=== PATIENT | female | born 1935 | race Caucasian/White ===

== ENCOUNTER 2016-07-18 18:14 | Emergency (ER) | payer MEDICARE ==
--- NOTE | 2016-07-18 19:56 | ED ---
Jose Martin Cole Matthew, scribed for James Bojorquez MD on 07/18/16 at 1944 . ED Suture/Wound Check - HPI Summary HPI Summary: An 80 y/o female presents to the ED c/o of excess bleeding from her surgical wounds s/p catheterization at 10:45 today. The patient was released at 15:00 today with minimal bleeding from her right wrist and right groin. However, when she returned home, she noticed her groin bandage was blood soaked. She contacted her surgeon who recommended she present to the ED. Per the daughter, the patient had to walk up a flight of stairs to get into her home and she has been coughing frequently. - History Of Current Complaint Chief Complaint: EDGeneral Stated Complaint: BLEEDING FROM GROIN-HAD CARDIAC CATH TODAY Time Seen by Provider: 07/18/16 19:24 Hx Obtained From: Patient Onset/Duration: Lasting Hours, Still Present Surgical Site: right wrist, right groin Severity: Mild Pain Intensity: 20 Procedure Type: Cardiac Catheterization Surgery Date: 07/18/16 - Allergies/Home Medications Allergies/Adverse Reactions: Allergies Allergy/AdvReac Type Severity Reaction Status Date / Time No Known Allergies Allergy Verified 07/04/14 14:59 PMH/Surg Hx/FS Hx/Imm Hx Endocrine/Hematology History: Reports: Hx Diabetes Denies: Hx Thyroid Disease Cardiovascular History: Reports: Hx Hypertension Respiratory History: Reports: Hx Asthma Denies: Hx Chronic Obstructive Pulmonary Disease (COPD) GI History: Denies: Hx Ulcer - Cancer History Cancer Type, Location and Year: Left breast - Surgical History Surgery Procedure, Year, and Place: b/l knee replacements, LEFT MASTECTOMY Infectious Disease History: Denies: Hx Hepatitis, Hx Human Immunodeficiency Virus (HIV), Traveled Outside the [place] in Last 30 Days - Family History Family History: FHx of COPD. FHx of Parkinsons - Social History Alcohol Use: Daily Substance Use Type: Reports: None Smoking Status (MU): Never Smoked Tobacco Review of Systems Constitutional: Negative Eyes: Negative ENT: Negative Cardiovascular: Negative Respiratory: Negative Gastrointestinal: Negative Genitourinary: Negative Musculoskeletal: Negative Skin: Other - excess bleeding from sugerical sights Neurological: Negative Psychological: Normal All Other Systems Reviewed And Are Negative: Yes Physical Exam Triage Information Reviewed: Yes Vital Signs On Initial Exam: Initial Vitals Temp Pulse Resp BP Pulse Ox 97.5 F 64 20 132/60 93 07/18/16 18:18 07/18/16 18:18 07/18/16 18:18 07/18/16 18:18 07/18/16 18:18 Vital Signs Reviewed: Yes Appearance: Positive: Well-Appearing, No Pain Distress Skin: Positive: Warm Head/Face: Positive: Normal Head/Face Inspection ENT: Positive: Hearing grossly normal Respiratory/Lung Sounds: Positive: Clear to Auscultation Abdomen Description: Positive: Other: - rt groin with pressure dressing with blood soaked gauze, no extravasation beyond bandage, banmdage in place since hospital d/c 6 hrs ago Musculoskeletal: Positive: Strength/ROM Intact Neurological: Positive: Sensory/Motor Intact Psychiatric: Positive: Affect/Mood Appropriate Diagnostics - Vital Signs Vital Signs Temp Pulse Resp BP Pulse Ox 07/18/16 18:18 97.5 F 64 20 132/60 93 - Laboratory Lab Statement: Any lab studies that have been ordered have been reviewed, and results considered in the medical decision making process. Course/Dx - Course Assessment/Plan: An 80 y/o female presents to the ED c/o of excess bleeding from her surgical wounds s/p catheterization at 10:45 today. The patient was released at 15:00 today with minimal bleeding from her right wrist and right groin. However, when she returned home, she noticed her groin bandage was blood soaked. She contacted her surgeon who recommended she present to the ED. Per the daughter, the patient had to walk up a flight of stairs to get into her home and she has been coughing frequently. The patient did well in the ED and her bandages were changed. She will be discharged home with follow-up from her surgeon. - Clinical Impression Provider Diagnoses: Bleeding from venipuncture site Discharge - Discharge Plan Condition: Good Disposition: HOME Patient Education Materials: Bandage Change (ED) Referrals: Altagracia VASQUEZ,Lou Alegre [Primary Care Provider] - 2 Days Additional Instructions: Please follow-up with your surgeon as well as your primary care physician. Do not drive for the next 24 hours. Please return to the ED if you continue to have excess bleeding. The documentation as recorded by the Jose Martin carrasco Matthew accurately reflects the service I personally performed and the decisions made by me, James Bojorquez MD.
[2016-07-18 20:35] VITALS: BP 150/69
== END 2016-07-18 21:01 | disposition home or self-care (01) ==
LOC: ED 18:14
DX: L76.22 Postprocedural hemorrhage of skin and subcutaneous tissue following other procedure (principal); Y83.8 Other surgical procedures as the cause of abnormal reaction of the patient, or of later complication, without mention of misadventure at the time of the procedure; E11.9 Type 2 diabetes mellitus without complications; I10 Essential (primary) hypertension
CPT/HCPCS: 99282

== ENCOUNTER 2017-10-15 09:49 | Emergency (ER) | payer MEDICARE ==
[2017-10-15 09:57] VITALS: BP 121/70
--- NOTE | 2017-10-15 11:19 | UC ---
Lower Extremity/Ankle HPI - HPI Summary HPI Summary: Accompanied by daughter states that for the past 2 days she has been feeling swelling of right lower leg with mild itching and tenderness. Swelling has worsened as days go by. She has history of Afib on Eliquis. Denies changes in medications and she is active and mobile. - History of Current Complaint Chief Complaint: UCLowerExtremity Stated Complaint: R LEG COMPLAINT Time Seen by Provider: 10/15/17 10:56 Hx Obtained From: Patient ?: No Onset/Duration: Sudden Onset, Lasting Days Severity Initially: Mild Severity Currently: Moderate Pain Intensity: 6 Aggravating Factor(s): Nothing Alleviating Factor(s): Elevation Able to Bear Weight: Yes - Risk Factors Gout Risk Factors: Age Over 40 DVT Risk Factors: Negative Septic Arthritis Risk Factor: Negative - Allergies/Home Medications Allergies/Adverse Reactions: Allergies Allergy/AdvReac Type Severity Reaction Status Date / Time No Known Allergies Allergy Verified 10/15/17 09:57 Home Medications: Home Medications Apixaban* [Eliquis*] 5 mg PO DAILY 10/15/17 [History Confirmed 10/15/17] Furosemide TAB* [Lasix TAB*] 80 mg PO DAILY 10/15/17 [History Confirmed 10/15/17 ] Montelukast Sodium TAB* [Singulair 10 MG TAB*] 10 mg PO DAILY 10/15/17 [History Confirmed 10/15/17] Omeprazole CAP* [Prilosec CAP* 20 MG] 20 mg PO DAILY 10/15/17 [History Confirmed 10/15/17] Potassium Chlor TAB* [Klor Con ER TAB 10 MEQ*] 10 meq PO DAILY 10/15/17 [ History Confirmed 10/15/17] Sildenafil (PULMONARY)(NF) [Revatio (NF)] 20 mg PO DAILY 10/15/17 [History Confirmed 10/15/17] Sitagliptin Phosphate [Januvia] 100 mg PO WEEKLY 10/15/17 [History Confirmed 07/28] metFORMIN* [Glucophage 1000 MG TAB *] 500 mg PO BID 10/15/17 [History Confirmed 10/15/17] metOLazone [Metolazone] 2.5 mg PO DAILY 10/15/17 [History Confirmed 10/15/17] PMH/Surg Hx/FS Hx/Imm Hx Previously Healthy: Yes Endocrine History: Diabetes Cardiovascular History: Hypertension, Congestive Heart Failure, Atrial Fibrillation GI/ History: Gastroesophageal Reflux - Surgical History Surgical History: Yes Surgery Procedure, Year, and Place: b/l knee replacements, LEFT MASTECTOMY - Family History Family History: FHx of COPD. FHx of Parkinsons - Social History Alcohol Use: Daily Substance Use Type: None Smoking Status (MU): Never Smoked Tobacco - Immunization History Most Recent Influenza Vaccination: [id number] Review of Systems Constitutional: Negative All Other Systems Reviewed And Are Negative: Yes Physical Exam Triage Information Reviewed: Yes Appearance: Well-Appearing, No Pain Distress, Well-Nourished Vital Signs: Initial Vital Signs Temp 98 F 10/15/17 09:51 Pulse 84 10/15/17 09:51 Resp 16 10/15/17 09:51 BP 121/70 10/15/17 09:51 Pulse Ox 99 10/15/17 09:51 Vital Signs Reviewed: Yes Eyes: Positive: Conjunctiva Clear Neck: Positive: Supple Respiratory: Positive: Chest non-tender, Lungs clear, Normal breath sounds Cardiovascular: Positive: Pulses Normal, Brisk Capillary Refill - irregular heartbeat, Bradycardia, Murmur:Sys:Grade _?_/ - 2/ Abdomen Description: Positive: Nontender Bowel Sounds: Positive: Present Musculoskeletal: Positive: Strength Intact, ROM Intact, Edema @ - right leg distal third Skin: Positive: Other - blanching erythema on distal third of right leg Lower Extremity Course/Dx - Course Course Of Treatment: cellulitis right leg, start antibiotics as prescribed, elevate leg, ice. F/u with PCP within a week - Differential Dx/Diagnosis Provider Diagnoses: Cellulitis right leg Discharge - Sign-Out/Discharge Documenting (check all that apply): Patient Departure, Post-Discharge Follow Up - Discharge Plan Condition: Good Disposition: HOME Prescriptions: DOXYcycline CAP(*) [DOXYcycline 100MG CAP(*)] 100 mg PO BID 7 Days #14 cap Patient Education Materials: Cellulitis (DC), Doxycycline (By mouth) Referrals: Altagracia VASQUEZ,Lou Alegre [Primary Care Provider] - - Billing Disposition and Condition Condition: GOOD Disposition: Home
== END 2017-10-15 11:37 | disposition home or self-care (01) ==
LOC: UCEAST 09:49
DX: L03.115 Cellulitis of right lower limb (principal); E11.9 Type 2 diabetes mellitus without complications; Z79.84 Long term (current) use of oral hypoglycemic drugs; I10 Essential (primary) hypertension; I48.91 Unspecified atrial fibrillation; Z79.01 Long term (current) use of anticoagulants; K21.9 Gastro-esophageal reflux disease without esophagitis; Z96.653 Presence of artificial knee joint, bilateral
CPT/HCPCS: 99212; G0463

== ENCOUNTER 2017-11-11 11:27 | Emergency (ER) | payer MEDICARE ==
--- NOTE | 2017-11-13 07:11 | UC ---
Discharge - Sign-Out/Discharge Documenting (check all that apply): Post-Discharge Follow Up All imaging exams completed and their final reports reviewed: No Studies - Discharge Plan Condition: Stable Disposition: LEFT WITHOUT BEING SEEN Referrals: Altagracia VASQUEZ,Lou Alegre [Primary Care Provider] - - Billing Disposition and Condition Condition: STABLE Disposition: Left Without Being Seen
== END 2017-11-11 11:51 | disposition left against medical advice (07) ==
LOC: UCEAST 11:27
DX: Z53.21 Procedure and treatment not carried out due to patient leaving prior to being seen by health care provider (principal)

== ENCOUNTER 2017-11-11 12:10 | Emergency (ER) | payer MEDICARE ==
--- NOTE | 2017-11-11 14:53 | RAD ---
INDICATION: LEFT lower extremity edema. COMPARISON: No relevant prior exams available on the [facility] [place] PACS for comparison. TECHNIQUE: Phan scale, color Doppler, and spectral analysis of the deep veins of the LEFT lower extremity. Vessel compression, phasicity, and augmentation assessed. REPORT: The LEFT common femoral, great saphenous, profunda femoral, femoral, popliteal, peroneal, and posterior tibial veins are patent. Patency of the RIGHT common femoral vein documented. IMPRESSION: No evidence for LEFT lower extremity deep venous thrombosis.
[2017-11-11 15:20] VITALS: BP 121/59
--- NOTE | 2017-11-12 07:34 | ED ---
Skin Complaint - HPI Summary HPI Summary: Patient is an 81-year-old female presenting to the ED from urgent care with request for ultrasound to rule out DVT. She endorses a small area approximately 4 cm x 3 cm to the upper medial portion of the lower leg which appears to be a hematoma. She injured the area several days ago getting into a vehicle. After which the hematoma grew and she developed some swelling and ecchymosis into the foot. Denies any pain to the calf. She has never had a DVT or PE in the past. Endorses mild pain to the foot, but no pain to the leg. Worse with ambulation, better with rest. The pain improves with elevation and ice. - History of Current Complaint Chief Complaint: EDRashSkinAbscess Time Seen by Provider: 11/11/17 12:44 Stated Complaint: LT LEG SWELLING Hx Obtained From: Patient Onset/Duration: Started Hours Ago Skin Exposure Onset/Duration: Days Ago Timing: Constant Onset Severity: Mild Current Severity: None Pain Intensity: 0 Pain Scale Used: 0-10 Numeric Aggravating Symptom(s): Nothing Alleviating Symptom(s): Nothing Associated Signs & Symptoms: Negative Related History: Trauma - Allergy/Home Medications Allergies/Adverse Reactions: Allergies Allergy/AdvReac Type Severity Reaction Status Date / Time No Known Allergies Allergy Verified 11/11/17 12:54 PMH/Surg Hx/FS Hx/Imm Hx Previously Healthy: Yes Endocrine/Hematology History: Reports: Hx Diabetes - II Denies: Hx Thyroid Disease Cardiovascular History: Reports: Hx Hypertension - on meds Respiratory History: Reports: Hx Asthma Denies: Hx Chronic Obstructive Pulmonary Disease (COPD) GI History: Denies: Hx Ulcer - Cancer History Cancer Type, Location and Year: Left breast - Surgical History Surgery Procedure, Year, and Place: b/l knee replacements, LEFT MASTECTOMY - Immunization History Hx Pertussis Vaccination: No Immunizations Up to Date: Yes Infectious Disease History: No Infectious Disease History: Denies: Hx Hepatitis, Hx Human Immunodeficiency Virus (HIV), Traveled Outside the [place] in Last 30 Days - Family History Family History: FHx of COPD. FHx of Parkinsons - Social History Occupation: Unemployed Lives: With Family Alcohol Use: Daily Hx Substance Use: No Substance Use Type: Reports: None Hx Tobacco Use: No Smoking Status (MU): Never Smoked Tobacco Review of Systems Constitutional: Negative Negative: Fever, Chills, Fatigue, Skin Diaphoresis Negative: Palpitations, Chest Pain Negative: Shortness Of Breath, Cough Genitourinary: Negative Positive: no symptoms reported, see HPI Negative: Arthralgia, Myalgia Skin: Negative Positive: Other - left medial lower let small hematoma Neurological: Negative All Other Systems Reviewed And Are Negative: Yes Physical Exam Triage Information Reviewed: Yes Vital Signs On Initial Exam: Initial Vitals Temp Pulse Resp BP Pulse Ox 97.2 F 47 16 131/63 96 11/11/17 12:17 11/11/17 12:17 11/11/17 12:17 11/11/17 12:17 11/11/17 12:17 Vital Signs Reviewed: Yes Appearance: Positive: Well-Appearing, Well-Nourished Skin: Positive: Warm, Skin Color Reflects Adequate Perfusion Head/Face: Positive: Normal Head/Face Inspection Eyes: Positive: EOMI, [place], Conjunctiva Clear Neck: Positive: Supple, No Lymphadenopathy Respiratory/Lung Sounds: Positive: Clear to Auscultation, Breath Sounds Present Cardiovascular: Positive: RRR, Pulses are Symmetrical in both Upper and Lower Extremities Musculoskeletal: Positive: Strength/ROM Intact, Other - left foot swelling - no leg swelling. Negative: Nasir Sign Left, Nasir Sign Right, Edema Left, Edema Right Neurological: Positive: Speech Normal Psychiatric: Positive: Normal, Affect/Mood Appropriate AVPU Assessment: Alert Diagnostics - Vital Signs Vital Signs Temp Pulse Resp BP Pulse Ox 11/11/17 15:18 98.4 F 70 18 121/59 96 11/11/17 12:17 97.2 F 47 16 131/63 96 - Laboratory Lab Statement: Any lab studies that have been ordered have been reviewed, and results considered in the medical decision making process. Course/Dx - Course Course Of Treatment: During the course of treatment, the patient is evaluated for left lower leg hematoma with some ipsilateral swelling into the left foot. She is evaluated for DVT. Ultrasound is negative for DVT. This appears to be a hematoma to the left leg which is causing swelling and ecchymosis to the foot. Improves greatly with elevation and ice. - Differential Diagnoses - Skin Complaint Differential Diagnoses: Other - DVT, contusion, swelling - Diagnoses Provider Diagnoses: Hematoma Discharge - Sign-Out/Discharge Documenting (check all that apply): Patient Departure - Discharge Plan Condition: Stable Disposition: HOME Referrals: Altagracia VASQUEZ,Lou Alegre [Primary Care Provider] - Additional Instructions: Elevate Ice Return to the ED or follow up with PCP if you develop redness and swelling up the leg No blood clot - Billing Disposition and Condition Condition: STABLE Disposition: Home
== END 2017-11-11 15:18 | disposition home or self-care (01) ==
LOC: ED 12:10
DX: S80.12XA Contusion of left lower leg, initial encounter (principal); W22.8XXA Striking against or struck by other objects, initial encounter; Y93.89 Activity, other specified; Y92.9 Unspecified place or not applicable; I10 Essential (primary) hypertension; Z96.653 Presence of artificial knee joint, bilateral
CPT/HCPCS: 99282

== ENCOUNTER 2018-07-11 11:53 | Inpatient (IN) | payer MEDICARE ==
--- OUTSIDE RECORDS SUMMARY | 2018-07-11 12:22 | XMS REPORT | Continuity of Care Document ---
:1935 External Reference #:[id number] Author Name Ulysses Khan MD Address [address] [place] [address] Care Team Providers Name Role Phone Lou Frias MD Care Team Information Preschool Director Unavailable Lou Frias MD Primary Care Physician Unavailable Payers Date Identification Numbers Payment Provider Subscriber Effective: Policy Number: [id number] [employer] Maday Madrid 2018 PayID: [id number] [address] [place] [address] Expires: 2018 Policy Number: Todays Opts [facility] Maday Madrid [id number] PayID: [id number] [address] [address] [place] [address] Advance Directives Description No Information Available Problems Active Problems Provider Date Pulmonary arterial hypertension Le Chao PA Onset: 02/07/2018 Hypoxemia Le Chao PA Onset: 02/07/2018 Acute bronchitis Le Chao PA Onset: 02/07/2018 Common cold Le Chao PA Onset: 05/16/2018 Hypo-osmolality and or hyponatremia Le Chao PA Onset: 06/12/2018 Malaise and fatigue Le Chao PA Onset: 06/12/2018 Family History Date Family Member(s) Observation Comments Father Emphysema Mother Unknown Social History Type Date Description Comments Sex Unknown Marital Status Occupation Retired Tobacco Use Start: Unknown Never Smoked Cigarettes Smoking Status Reviewed: 06/12/18 Never Smoked Cigarettes ETOH Use Currently consumes alcohol socially Tobacco Use Start: Unknown Patient has never smoked Recreational Drug Use Denies Drug Use Exercise Type/Frequency Golf Allergies, Adverse Reactions, Alerts Description No Known Drug Allergies Medications Active Medications SIG Qnty Indications Ordering Date Provider Montelukast Sodium Take One Tablet 90tabs J30.89 Ulysses Khan MD 2016 10mg By Mouth Every Tablets Day Torsemide 1 tab by mouth 45tabs I27.0 Ulysses Khan MD 100mg Tablets in in the morning and 1/2 tablet in the at night Spironolactone 1 by mouth every Unknown 50mg Tablets day Metoprolol Tartrate 1 by mouth twice Unknown 25mg a day Tablets Benzonatate take 1 capsule Unknown 100mg Capsules by mouth every 8 hours for coughing as needed Sildenafil Citrate take one tablet 90tabs Ulysses Khan MD 20mg by mouth three Tablets times a day Loratadine Take One Tablet 30tabs Ulysses Khan MD 10mg Tablets By Mouth Every Day Iron (Ferrous 1 by mouth every Unknown Gluconate) day 256(28Fe) mg Tablets Multi For Her 50+ 1 po qd Unknown Tablets Omeprazole 1 by mouth every Unknown 40mg Capsules DR day Potassium Chloride Vanessa 2 by mouth every 60tabs Ulysses Khan MD ER day 10Meq Tablets ER Metolazone by mouth 20 min 30tabs Unknown 2.5mg Tablets before lasix two times a week on mon, Oxygen 3L/min via nasal I27.0 Ulysses Khan MD cannula at hs and with activity to maintain oximetry greater than 88%. Please test for use with Portable o2 Concentrator. R09.02 Simvastatin 20mg 1 by mouth every day Unknown Tablets History Medications Torsemide 2 by mouth every 90tabs I27.0 Ulysses Khan, 05/17/2018 - 20mg Tablets morning and 1 in 06/12/2018 the afternoon, check bloodwork in one week Levaquin 1 by mouth daily 7tabs J20.9 Shaina Khantin, 02/07/2018 - 750mg Tablets for 5 days MD Unknown Claritin Take One Tablet 30tabs Shaina Khantin, 05/07/2017 - 10mg Tablet By Mouth Every MD Unknown Evening Revatio Take One Tablet 90tabs I27.0 Shaina Khantin, 05/01/2017 - 20mg Tablets By Mouth Three MD Unknown Times A Day Ciprofloxacin HCL Take 1 tablet 14tabs K74.60 Shaina Khantin, 04/28/2017 - 500mg Tablets twice a day or 7 MD Unknown days. Adcirca 1 by mouth every 30tabs I27.0 Bill, Ulysses, 04/12/2017 - 20mg Tablets day MD 05/01/2017 Claritin Take One Tablet 30tabs hSaina Khantin, 02/09/2017 - 10mg Tablet By Mouth Every MD Unknown Evening Adcirca 1 by mouth every 30tabs I27.0 Bill, Ulysses, 01/24/2017 - 20mg Tablets day MD Unknown Claritin take one tablet 30caps J30.89 Shaina Khantin, 08/11/2016 - 10mg Capsules by mouth every MD Unknown evening Spiriva Respimat take 2 puffs 4gm Shaina Khantin, - 2.5mcg/Act once daily. 06/12/2018 Aerosol Eliquis 1 tab by mouth Unknown - 5mg Tablets twice a day Unknown Vitamin D-3 1 by mouth every Unknown - 1000Unit Capsules day Unknown Furosemide 1 by mouth every Unknown - 80mg Tablets day 05/17/2018 Letairis 1 po qd Unknown - 5mg Tablets Unknown Qvar inhale one puff Unknown - 80mcg/Act Aerosol by mouth twice a 08/17/2016 day Bisoprolol Fumarate 1 by mouth every Unknown - 5mg Tablets day Unknown Levocetirizine 1 by mouth every Unknown - Dihydrochloride day 11/10/2016 5mg Tablets Januvia 1 by mouth every Unknown - 100mg Tablets day Unknown Hydrochlorothiazide 1 by mouth every Unknown - 25mg Tablets day Unknown Digoxin 1 by mouth every Unknown - 125mcg Tablets day Unknown Losartan Potassium 1 by mouth every Unknown - 50mg Tablets day Unknown Metformin HCL ER 1 by mouth twice Unknown - 500mg Tablets ER daily Unknown 24HR Pradaxa take one capsule Unknown - 150mg Capsules by mouth twice a Unknown day Immunizations Description No Information Available Vital Signs Date Vital Result Comment 06/12/2018 2:28pm BP Systolic Sitting Left Arm 98 mmHg BP Diastolic Sitting Left Arm 62 mmHg Heart Rate 77 /min Respiratory Rate 18 /min Height 64 inches 5'4" Weight 130.00 lb BMI (Body Mass Index) 22.3 kg/m2 BSA (Body Surface Area) 1.63 m2 [place] body weight in kilograms 54 kg O2 % BldC Oximetry 98 % 05/16/2018 2:22pm BP Systolic Sitting Left Arm 122 mmHg BP Diastolic Sitting Left Arm 60 mmHg Heart Rate 90 /min Respiratory Rate 18 /min Height 64 inches 5'4" Weight 162.00 lb BMI (Body Mass Index) 27.8 kg/m2 BSA (Body Surface Area) 1.79 m2 [place] body weight in kilograms 54 kg O2 % BldC Oximetry 88 % 03/21/2018 11:07am BP Systolic Sitting Left Arm 138 mmHg BP Diastolic Sitting Left Arm 62 mmHg Heart Rate 84 /min Respiratory Rate 18 /min Height 64 inches 5'4" Weight 159.00 lb BMI (Body Mass Index) 27.3 kg/m2 BSA (Body Surface Area) 1.77 m2 [place] body weight in kilograms 54 kg O2 % BldC Oximetry 83 % Ora 02/07/2018 9:54am BP Systolic Sitting Left Arm 120 mmHg BP Diastolic Sitting Left Arm 50 mmHg Body Temperature 98.4 F Heart Rate 84 /min Respiratory Rate 20 /min Height 64 inches 5'4" Weight 148.00 lb BMI (Body Mass Index) 25.4 kg/m2 BSA (Body Surface Area) 1.72 m2 [place] body weight in kilograms 54 kg O2 % BldC Oximetry 90 % 12/28/2017 1:35pm BP Systolic Sitting Right Arm 116 mmHg BP Diastolic Sitting Right Arm 62 mmHg Heart Rate 74 /min Respiratory Rate 18 /min Height 64 inches 5'4" Weight 150.00 lb BMI (Body Mass Index) 25.7 kg/m2 BSA (Body Surface Area) 1.73 m2 [place] body weight in kilograms 54 kg O2 % BldC Oximetry 97 % room air 08/24/2017 1:35pm BP Systolic Sitting Left Arm 118 mmHg BP Diastolic Sitting Left Arm 60 mmHg Heart Rate 81 /min Respiratory Rate 18 /min Weight 150.00 lb O2 % BldC Oximetry 92 % Ora 06/26/2017 11:52am BP Systolic Sitting Left Arm 124 mmHg BP Diastolic Sitting Left Arm 64 mmHg Heart Rate 86 /min Respiratory Rate 16 /min Height 64 inches 5'4" Weight 152.00 lb BMI (Body Mass Index) 26.1 kg/m2 BSA (Body Surface Area) 1.74 m2 [place] body weight in kilograms 54 kg O2 % BldC Oximetry 94 % Ora 04/28/2017 12:54pm BP Systolic Sitting Left Arm 122 mmHg BP Diastolic Sitting Left Arm 64 mmHg Heart Rate 84 /min Respiratory Rate 16 /min Height 64 inches 5'4" Weight 136.00 lb BMI (Body Mass Index) 23.3 kg/m2 BSA (Body Surface Area) 1.66 m2 [place] body weight in kilograms 54 kg O2 % BldC Oximetry 94 % 04/12/2017 2:08pm BP Systolic Sitting Right Arm 112 mmHg BP Diastolic Sitting Right Arm 60 mmHg Heart Rate 44 /min Respiratory Rate 20 /min Height 64 inches 5'4" Weight 161.00 lb BMI (Body Mass Index) 27.6 kg/m2 BSA (Body Surface Area) 1.78 m2 [place] body weight in kilograms 54 kg O2 % BldC Oximetry 97 % Room air 01/24/2017 3:32pm BP Systolic Sitting Left Arm 130 mmHg BP Diastolic Sitting Left Arm 77 mmHg Heart Rate 60 /min Respiratory Rate 16 /min Height 64 inches 5'4" Weight 156.00 lb BMI (Body Mass Index) 26.8 kg/m2 BSA (Body Surface Area) 1.76 m2 [place] body weight in kilograms 54 kg O2 % BldC Oximetry 94 % 12/13/2016 3:59pm BP Systolic Sitting Left Arm 118 mmHg BP Diastolic Sitting Left Arm 62 mmHg Heart Rate 53 /min Respiratory Rate 16 /min Height 64 inches 5'4" Weight 161.00 lb BMI (Body Mass Index) 27.6 kg/m2 BSA (Body Surface Area) 1.78 m2 [place] body weight in kilograms 54 kg O2 % BldC Oximetry 95 % Ora 11/10/2016 2:41pm BP Systolic Sitting Left Arm 102 mmHg BP Diastolic Sitting Left Arm 64 mmHg Heart Rate 50 /min Respiratory Rate 16 /min Height 64 inches 5'4" Weight 162.00 lb BMI (Body Mass Index) 27.8 kg/m2 BSA (Body Surface Area) 1.79 m2 [place] body weight in kilograms 54 kg O2 % BldC Oximetry 89 % Ora 08/11/2016 3:40pm BP Systolic Sitting Right Arm 114 mmHg BP Diastolic Sitting Right Arm 54 mmHg Heart Rate 55 /min Respiratory Rate 16 /min Height 64 inches 5'4" Weight 161.00 lb BMI (Body Mass Index) 27.6 kg/m2 BSA (Body Surface Area) 1.78 m2 [place] body weight in kilograms 54 kg O2 % BldC Oximetry 91 % Room Air 06/22/2016 3:20pm BP Systolic Sitting Left Arm 112 mmHg BP Diastolic Sitting Left Arm 76 mmHg Heart Rate 68 /min Respiratory Rate 18 /min Height 64 inches 5'4" Weight 166.00 lb BMI (Body Mass Index) 28.5 kg/m2 BSA (Body Surface Area) 1.81 m2 [place] body weight in kilograms 54 kg O2 % BldC Oximetry 88 % Results Test Date Facility Test Result H/L Range Note Comprehensive 06/15/2018 [facility] Glucose 292 mg/dL High 74-106 1 Metabolic Panel [address] [place], [place] [id number] [phone] BUN 112 mg/dL High 7-18 Creatinine 2.6 mg/dL High 0.6-1.3 Glom Filtration Rate, Estimate 19 mL/min >60 If 23 mL/min >60 2 BUN/Creat 43.0 ratio Sodium 125 mmol/L Low 136-145 Potassium 4.1 mmol/L N 3.5-5.1 Chloride 87 mmol/L Low 98-107 Carbon Dioxide 28 mmol/L N 21-32 Anion Gap 10 mEq/L N 8-16 Calcium 9.4 mg/dL N 8.5-10.1 Total Protein 7.2 g/dL N 6.4-8.2 Albumin 4.0 g/dL N 3.4-5.0 Globulin 3.2 g/dL N 1.9-4.3 Alb/Glob 1.3 ratio Bilirubin,Total 1.0 mg/dL N 0.2-1.0 Sgot/Ast 38 U/L High 15-37 SGPT/Alt 42 U/L N 12-78 Alkaline Phosphatase 141 U/L High 45-117 CBC 06/15/2018 [facility] White Blood Count 7.9 K/uL N 3.1-10.7 [address] [place] [address] [phone] Red Blood Count 4.31 M/uL N 3.90-5.40 Hemoglobin 12.1 gm/dL N 11.6-15.8 Hematocrit 36.9 % N 36.0-46.1 Mean Cell Volume 85.6 fl N 80.9-99.0 Mean Corpuscular HGB 28.1 pg N 25.9-32.7 Mean Corpuscular HGB Conc 32.8 g/dL N 30.8-34.3 Platelet Count 363 K/uL High 155-360 Red Cell Distri Width SD 55.1 fl High 36-47 Red Cell Distri Width %CV 18.0 % High 11.7-14.4 Mean Platelet Volume 10.6 fL N 8.9-12.4 NRBC % 0.0 /100WBC < 10/ 100 WBC Serum or plasma 05/26/2018 N2N/CCD Import Serum or plasma 9.1 8.5-10.1 calcium measurement calcium (mass/volume) measurement (mass/volume) Serum or plasma 05/26/2018 N2N/CCD Import Serum or plasma 5 Low 8-16 anion gap anion gap Co2 SerPl-sCnc 05/26/2018 N2N/CCD Import Co2 SerPl-sCnc 26 21-32 Serum or plasma 05/26/2018 N2N/CCD Import Serum or plasma 103 98-107 chloride chloride measurement measurement Serum or plasma 05/26/2018 N2N/CCD Import Serum or plasma 4.7 3.5-5.1 potassium potassium measurement measurement Sodium SerPl-sCnc 05/26/2018 N2N/CCD Import Sodium SerPl-sCnc 134 Low 136 -145 Serum or plasma 05/26/2018 N2N/CCD Import Serum or plasma 31.6 urea urea nitrogen/creatinine nitrogen/creatinin mass rati e mass ratio GFR/Bsa pred.black 05/26/2018 N2N/CCD Import GFR/Bsa pred.black 55 >60 SerPl MDRD-ArVRat SerPl MDRD-ArVRat Estimated 05/26/2018 N2N/CCD Import Estimated 46 >60 glomerular glomerular filtration rate filtration rate (GFR) non-Afr (GFR) non- Serum or plasma 05/26/2018 N2N/CCD Import Serum or plasma 1.2 0.6-1.3 creatinine creatinine measurement measurement (mass/volum (mass/volume) Serum or plasma 05/26/2018 N2N/CCD Import Serum or plasma 38 High 7-18 urea nitrogen urea nitrogen measurement measurement (mass/vo (mass/volume) Serum or plasma 05/26/2018 N2N/CCD Import Serum or plasma 192 High 74- 106 glucose measurement glucose (mass/volume) measurement (mass/volume) Capillary blood 05/26/2018 N2N/CCD Import Capillary blood 253 High 70- 110 glucose measurement glucose by glucometer measurement by glucometer (mass/volume) CBC 05/26/2018 [facility] White Blood Count 12.7 High 3.1-10.[address] [place] [address] [phone] Red Blood Count 3.13 M/uL Low 3.90-5.40 Hemoglobin 8.6 gm/dL Low 11.6-15.8 Hematocrit 27.8 % Low 36.0-46.1 Mean Cell Volume 88.8 fl N 80.9-99.0 Mean Corpuscular HGB 27.5 pg N 25.9-32.7 Mean Corpuscular HGB Conc 30.9 g/dL N 30.8-34.3 Platelet Count 260 K/uL N 155-360 Red Cell Distri Width %CV 15.9 % High 11.7-14.4 Mean Platelet Volume 10.2 fL N 8.9-12.4 Basic Metabolic Panel 05/26/2018 [facility] Glucose 192 mg/dL High 74-106 [address] [place], [place] [id number] [phone] BUN 38 mg/dL High 7-18 Creatinine 1.2 mg/dL N 0.6-1.3 Glom Filtration Rate, Estimate 46 mL/min >60 If 55 mL/min >60 4 BUN/Creat 31.6 ratio Sodium 134 mmol/L Low 136-145 Potassium 4.7 mmol/L N 3.5-5.1 Chloride 103 mmol/L N 98-107 Carbon Dioxide 26 mmol/L N 21-32 Anion Gap 5 mEq/L Low 8-16 Calcium 9.1 mg/dL N 8.5-10.1 Automated blood 05/26/2018 N2N/CCD Import Automated blood 12.7 High 3.1- 10.7 leukocyte count leukocyte count (number/volume) (number/volume) Blood erythrocytes 05/26/2018 N2N/CCD Import Blood erythrocytes 3.13 Low 3.90-5.40 automated count automated count (number/volume) (number/volume) Blood hemoglobin 05/26/2018 N2N/CCD Import Blood hemoglobin 8.6 Low 11.6- 15.8 measurement measurement (mass/volume) (mass/volume) Hct VFr Bld Auto 05/26/2018 N2N/CCD Import Hct VFr Bld Auto 27.8 Low 36.0 -46.1 Automated 05/26/2018 N2N/CCD Import Automated 88.8 80.9-99.0 erythrocyte mean erythrocyte mean corpuscular volume corpuscular volume (MCV (MCV) measurement Automated 05/26/2018 N2N/CCD Import Automated 27.5 25.9-32.7 erythrocyte mean erythrocyte mean corpuscular corpuscular hemoglobin hemoglobin (mass per erythrocyte) Automated 05/26/2018 N2N/CCD Import Automated 30.9 30.8-34.3 erythrocyte mean erythrocyte mean corpuscular corpuscular hemoglobin hemoglobin concentration measurement (mass/volume) Automated blood 05/26/2018 N2N/CCD Import Automated blood 260 155-360 platelet count platelet count Automated 05/26/2018 N2N/CCD Import Automated 15.9 High 11.7-14.4 erythrocyte erythrocyte distribution width distribution width ratio ratio Automated blood 05/26/2018 N2N/CCD Import Automated blood 10.2 8.9-12.4 platelet mean platelet mean volume measurement volume measurement Automated basophil 05/25/2018 N2N/CCD Import Automated basophil 0.1 0.0- 1.1 % % Absolute neutrophil 05/25/2018 N2N/CCD Import Absolute neutrophil 11.97 High 1.8-7.0 count count Automated blood 05/25/2018 N2N/CCD Import Automated blood 0.83 Low 1.0- 4.0 lymphocyte count lymphocyte count (number/volume) (number/volume) Blood monocytes 05/25/2018 N2N/CCD Import Blood monocytes 0.65 0.3-0.9 automated count automated count (number/volume) (number/volume) Automated blood 05/25/2018 N2N/CCD Import Automated blood 0.00 0.0-0.5 eosinophil count eosinophil count Automated blood 05/25/2018 N2N/CCD Import Automated blood 0.01 0.0-0.1 basophil count basophil count (number/volume) (number/volume) Unloinc 05/25/2018 N2N/CCD Import Unloinc See Note 5 Blood polychromasia 05/25/2018 N2N/CCD Import Blood polychromasia 0-1+ detection by light detection by light microscopy microscopy Whole blood 05/25/2018 N2N/CCD Import Whole blood 1+ hypochromia hypochromia detection by light detection by light microsc microscopy Blood 05/25/2018 N2N/CCD Import Blood 0-1+ poikilocytosis poikilocytosis detection by light detection by light microscopy microscopy Blood anisocytosis 05/25/2018 N2N/CCD Import Blood anisocytosis 1+ detection by light detection by light microscopy microscopy Blood basophilic 05/25/2018 N2N/CCD Import Blood basophilic 0-1+ stippling detection stippling detection by light micr by light microscopy Blood elliptocytes 05/25/2018 N2N/CCD Import Blood elliptocytes 0-1+ detection by light detection by light microscopy microscopy Hemoglobin/Hematocr 05/25/2018 [facility] Hemoglobin 8.5 Low 11.6-15.[address] gm/dL [place], [place] [id number] [phone] Hematocrit 27.5 % Low 36.0-46.1 Protime 05/25/2018 [facility] Protime 18.3 seconds High 12.0-14.4 [address] [place], [place] [id number] [phone] Inr 1.5 High 0.9-1.1 6 Basic Metabolic Panel 05/25/2018 [facility] Glucose 238 mg/dL High 74-106 [address] [place], [place] [id number] [phone] BUN 39 mg/dL High 7-18 Creatinine 1.3 mg/dL N 0.6-1.3 Glom Filtration Rate, Estimate 42 mL/min >60 If 50 mL/min >60 7 BUN/Creat 30.0 ratio Sodium 131 mmol/L Low 136-145 Potassium 4.9 mmol/L N 3.5-5.1 Chloride 100 mmol/L N 98-107 Carbon Dioxide 24 mmol/L N 21-32 Anion Gap 7 mEq/L Low 8-16 Calcium 9.2 mg/dL N 8.5-10.1 Prothrombin time 05/25/2018 N2N/CCD Import Prothrombin time 18.3 High 12.0-14.4 (PT) in platelet (PT) in platelet poor plasma poor plasma Platelet poor 05/25/2018 N2N/CCD Import Platelet poor 1.5 High 0.9-1.1 plasma plasma international international normalized rati normalized ratio (Inr) by coagulation assay (relative time) Basic Metabolic 05/25/2018 [facility] Glucose 156 mg/dL High 74-[address] [place] [address] [phone] BUN 41 mg/dL High 7-18 Creatinine 1.2 mg/dL N 0.6-1.3 Glom Filtration Rate, Estimate 46 mL/min >60 If 55 mL/min >60 8 BUN/Creat 34.1 ratio Sodium 130 mmol/L Low 136-145 Potassium 5.2 mmol/L High 3.5-5.1 Chloride 99 mmol/L N 98-107 Carbon Dioxide 23 mmol/L N 21-32 Anion Gap 8 mEq/L N 8-16 Calcium 9.4 mg/dL N 8.5-10.1 CBC W/Automated 05/25/2018 [facility] White Blood 13.5 K/uL High 3.1-10.[address] [place] [address] [phone] Red Blood Count 3.18 M/uL Low 3.90-5.40 Hemoglobin 8.7 gm/dL Low 11.6-15.8 Hematocrit 28.1 % Low 36.0-46.1 Mean Cell Volume 88.4 fl N 80.9-99.0 Mean Corpuscular HGB 27.4 pg N 25.9-32.7 Mean Corpuscular HGB Conc 31.0 g/dL N 30.8-34.3 Platelet Count 251 K/uL N 155-360 Red Cell Distri Width SD 49.3 fl High 36-47 Red Cell Distri Width %CV 16.1 % High 11.7-14.4 Mean Platelet Volume 10.4 fL N 8.9-12.4 Neut% 88.9 % High 40.4-72.8 Lymph % 6.2 % Low 20.0-42.0 Kleberg % 4.8 % N 4.3-13.2 Eo% 0.0 % N 0.0-6.6 Bas% 0.1 % N 0.0-1.1 Neut# 11.97 K/uL High 1.8-7.0 Lymph # 0.83 K/uL Low 1.0-4.0 Kleberg # 0.65 K/uL N 0.3-0.9 Eos # 0.00 K/uL N 0.0-0.5 Baso # 0.01 K/uL N 0.0-0.1 Slide Review 05/25/2018 [facility] Slide Review (SEE NOTE) [address] [place] [address] [phone] RBC Morphology Only 05/25/2018 [facility] Polychromasia 0-1+ [address] [place] [address] [phone] Hypochromia 1+ Poikilocytosis 0-1+ Anisocytosis 1+ Basophilic Stippling 0-1+ Elliptocytes 0-1+ Automated 05/25/2018 N2N/CCD Import Automated 49.3 High 36-47 erythrocyte erythrocyte distribution width distribution width Automated blood 05/25/2018 N2N/CCD Import Automated blood 88.9 High 40.4- 72.8 neutrophils/100 neutrophils/100 leukocytes leukocytes Automated blood 05/25/2018 N2N/CCD Import Automated blood 6.2 Low 20.0- 42.0 lymphocytes/100 lymphocytes/100 leukocytes leukocytes Automated monocyte 05/25/2018 N2N/CCD Import Automated 4.8 4.3-13.2 % monocyte % Automated 05/25/2018 N2N/CCD Import Automated 0.0 0.0-6.6 eosinophil % eosinophil % Hemoglobin/Hematoc 05/24/2018 [facility] Hemoglobin 8.7 gm/dL Low 11.6-15.8 rit [address] [place] [address] [phone] Hematocrit 28.1 % Low 36.0-46.1 Basic Metabolic Panel 05/24/2018 [facility] Glucose 138 mg/dL High 74-106 [address] [place], [place] [id number] [phone] BUN 41 mg/dL High 7-18 Creatinine 1.2 mg/dL N 0.6-1.3 Glom Filtration Rate, Estimate 46 mL/min >60 If 55 mL/min >60 10 BUN/Creat 34.1 ratio Sodium 129 mmol/L Low 136-145 Potassium 5.6 mmol/L High 3.5-5.1 Chloride 95 mmol/L Low 98-107 Carbon Dioxide 24 mmol/L N 21-32 Anion Gap 10 mEq/L N 8-16 Calcium 8.9 mg/dL N 8.5-10.1 CBC 05/24/2018 [facility] White Blood Count 14.5 K/uL High 3.1-10.7 [address] [place] [address] [phone] Red Blood Count 3.19 M/uL Low 3.90-5.40 Hemoglobin 8.7 gm/dL Low 11.6-15.8 Hematocrit 28.3 % Low 36.0-46.1 Mean Cell Volume 88.7 fl N 80.9-99.0 Mean Corpuscular HGB 27.3 pg N 25.9-32.7 Mean Corpuscular HGB Conc 30.7 g/dL Low 30.8-34.3 Platelet Count 269 K/uL N 155-360 Red Cell Distri Width %CV 16.1 % High 11.7-14.4 Mean Platelet Volume 10.2 fL N 8.9-12.4 Basic Metabolic Panel 05/24/2018 [facility] Glucose 150 mg/dL High 74-106 [address] [place] [address] [phone] BUN 48 mg/dL High 7-18 Creatinine 1.4 mg/dL High 0.6-1.3 Glom Filtration Rate, Estimate 38 mL/min >60 If 46 mL/min >60 11 BUN/Creat 34.2 ratio Sodium 127 mmol/L Low 136-145 Potassium 5.6 mmol/L High 3.5-5.1 Chloride 94 mmol/L Low 98-107 Carbon Dioxide 26 mmol/L N 21-32 Anion Gap 7 mEq/L Low 8-16 Calcium 9.0 mg/dL N 8.5-10.1 Basic Metabolic Panel 05/23/2018 [facility] Glucose 129 mg/dL High 74-106 [address] [place] [address] [phone] BUN 50 mg/dL High 7-18 Creatinine 1.4 mg/dL High 0.6-1.3 Glom Filtration Rate, Estimate 38 mL/min >60 If 46 mL/min >60 12 BUN/Creat 35.7 ratio Sodium 129 mmol/L Low 136-145 Potassium 5.1 mmol/L 3.5-5.1 Chloride 94 mmol/L Low 98-107 Carbon Dioxide 24 mmol/L N 21-32 Anion Gap 11 mEq/L N 8-16 Calcium 8.8 mg/dL N 8.5-10.1 CBC 05/23/2018 [facility] White Blood Count 17.4 K/uL High 3.1-10.7 [address] [place], [place] [id number] [phone] Red Blood Count 2.84 M/uL Low 3.90-5.40 Hemoglobin 7.7 gm/dL Low 11.6-15.8 Hematocrit 25.6 % Low 36.0-46.1 Mean Cell Volume 90.1 fl N 80.9-99.0 Mean Corpuscular HGB 27.1 pg N 25.9-32.7 Mean Corpuscular HGB Conc 30.1 g/dL Low 30.8-34.3 Platelet Count 296 K/uL N 155-360 Red Cell Distri Width %CV 16.4 % High 11.7-14.4 Mean Platelet Volume 10.8 fL N 8.9-12.4 Stool occult 05/23/2018 N2N/CCD Import Stool occult Positive High Negative blood blood Occult 05/23/2018 [facility] Stool Occult POSITIVE Abnormal Negative 13 Blood,Stool [address] [facility] [place] [address] Spec [phone] Hemoglobin/He 05/23/2018 [facility] Hemoglobin 8.6 gm/dL Low 11.6-15.8 matocrit [address] [place], [place] [id number] [phone] Hematocrit 28.1 % Low 36.0-46.1 Laboratory test 05/22/2018 [facility] Legionella Negative Negative 14 finding [address] [facility] [place] [address] [phone] Urine color 05/22/2018 N2N/CCD Import Urine color Yellow Yellow determination determination Urine 05/22/2018 N2N/CCD Import Urine Clear Clear appearance appearance determination determination Urine glucose 05/22/2018 N2N/CCD Import Urine glucose Negative Negative measurement by measurement by automated test automated test strip strip (mass/volume) Urine total 05/22/2018 N2N/CCD Import Urine total Negative Negative bilirubin bilirubin detection by detection by automated test automated test strip Urine ketones 05/22/2018 N2N/CCD Import Urine ketones Negative Negative measurement by measurement by automated test automated test strip strip (mass/volume) Specific 05/22/2018 N2N/CCD Import Specific 1.015 1.010-1.03 gravity of gravity of 0 Urine by Urine by Automated test Automated test strip strip Urine 05/22/2018 N2N/CCD Import Urine Negative Negative hemoglobin hemoglobin detection by detection by automated test automated test strip strip Urine pH 05/22/2018 N2N/CCD Import Urine pH 6.0 Low 6.5-7.5 measurement by measurement by automated test automated test strip strip Urine protein 05/22/2018 N2N/CCD Import Urine protein Negative Negative measurement by measurement by automated test automated test strip strip (mass/volume) Urine 05/22/2018 N2N/CCD Import Urine 0.2 0.2-1.0 urobilinogen urobilinogen measurement measurement (units/volume) (units/volume) by t by test strip Urine nitrite 05/22/2018 N2N/CCD Import Urine nitrite Negative Negative detection by detection by automated test automated test strip strip Urine leukocyte 05/22/2018 N2N/CCD Import Urine leukocyte Negative Negative esterase esterase detection by detection by automated te automated test strip Urine 05/22/2018 N2N/CCD Import Urine Negative Negative Legionella Legionella pneumophila 1 pneumophila 1 antigen antigen detection b detection by immunoassay Laboratory test 05/22/2018 [facility] Troponin-I 0.036 [address] ng/[place] [address] [phone] CBC 05/22/2018 [facility] White Blood 11.1 K/uL High 3.1-10.[address] [place] [address] [phone] Red Blood Count 2.91 M/uL Low 3.90-5.40 Hemoglobin 7.9 gm/dL Low 11.6-15.8 Hematocrit 26.0 % Low 36.0-46.1 Mean Cell Volume 89.3 fl N 80.9-99.0 Mean Corpuscular HGB 27.1 pg N 25.9-32.7 Mean Corpuscular HGB Conc 30.4 g/dL Low 30.8-34.3 Platelet Count 272 K/uL N 155-360 Red Cell Distri Width %CV 16.4 % High 11.7-14.4 Mean Platelet Volume 10.1 fL N 8.9-12.4 Continuous Oximetry 05/22/2018 [facility] Oximetry 90 % Low 93-98 [address] [place] [address] [phone] Fio2 21 N 21-100 Heart Rate 82 BPM Patient Status AMBULATING Arterial blood 05/22/2018 N2N/CCD Import Arterial blood 90 Low 93-98 oxygen saturation oxygen saturation measurement by pu measurement by pulse oximetry Determination of 05/22/2018 N2N/CCD Import Determination of 21 21-100 inhaled oxygen inhaled oxygen concentration (vol concentration (volume fraction) Heart rate by 05/22/2018 N2N/CCD Import Heart rate by 82 oximetry oximetry Unloinc 05/22/2018 N2N/CCD Import Unloinc Ambulating Continuous Oximetry 05/22/2018 [facility] Oximetry 93 % N 93-98 [address] [place] [address] [phone] Fio2 21 N 21-100 Heart Rate 86 BPM Patient Status RESTING Patient Position SITTING UP IN BE <SEE NOTE> 16 Unloinc 05/22/2018 N2N/CCD Import Unloinc Sitting Up In Bed CBC W/Automated 05/22/2018 [facility] White Blood 7.7 K/uL N 3.1-10.7 Diff [address] [place] [address] [phone] Red Blood Count 3.13 M/uL Low 3.90-5.40 Hemoglobin 8.5 gm/dL Low 11.6-15.8 Hematocrit 28.0 % Low 36.0-46.1 Mean Cell Volume 89.5 fl N 80.9-99.0 Mean Corpuscular HGB 27.2 pg N 25.9-32.7 Mean Corpuscular HGB Conc 30.4 g/dL Low 30.8-34.3 Platelet Count 256 K/uL N 155-360 Red Cell Distri Width SD 52.3 fl High 36-47 Red Cell Distri Width %CV 16.7 % High 11.7-14.4 Mean Platelet Volume 10.2 fL N 8.9-12.4 Neut% 85.1 % High 40.4-72.8 Lymph % 10.0 % Low 20.0-42.0 Kleberg % 4.8 % N 4.3-13.2 Eo% 0.0 % N 0.0-6.6 Bas% 0.1 % N 0.0-1.1 Neut# 6.57 K/uL N 1.8-7.0 Lymph # 0.77 K/uL Low 1.0-4.0 Kleberg # 0.37 K/uL N 0.3-0.9 Eos # 0.00 K/uL N 0.0-0.5 Baso # 0.01 K/uL N 0.0-0.1 Basic Metabolic Panel 05/22/2018 [facility] Glucose 155 mg/dL High 74-106 [address] [place] [address] [phone] BUN 43 mg/dL High 7-18 Creatinine 1.5 mg/dL High 0.6-1.3 Glom Filtration Rate, Estimate 35 mL/min >60 If 43 mL/min >60 17 BUN/Creat 28.6 ratio Sodium 132 mmol/L Low 136-145 Potassium 4.1 mmol/L 3.5-5.1 Chloride 94 mmol/L Low 98-107 Carbon Dioxide 30 mmol/L N 21-32 Anion Gap 8 mEq/L N 8-16 Calcium 8.8 mg/dL N 8.5-10.1 Laboratory test 05/22/2018 [facility] NT-proBNP 4653.0 pg/mL High <450 finding [address] [place] [address] [phone] Lactic Acid 05/22/2018 [facility] Lactic Acid 1.7 mmol/L N 0.4-1.9 [address] [place] [address] [phone] Lab Reflex >2.0 for Sepsis? N Serum or plasma 05/22/2018 N2N/CCD Import Serum or plasma 4653.0 High < 450 natriuretic natriuretic peptide peptide B B prohormone prohormone N N-terminal measurement (mass/volume) Serum or plasma 05/22/2018 N2N/CCD Import Serum or plasma 1.7 0.4-1.9 lactate lactate measurement measurement (moles/volume) (moles/volume) Type And Screen 05/22/2018 [facility] Patient Blood Type O POS N [address] [place] [address] [phone] Antibody Screen Negative N Negative Ua RFX Micro & Culture 05/22/2018 [facility] Urine Color YELLOW Yellow II [address] [place] [address] [phone] Urine Clarity CLEAR Clear Urine Glucose - Dipstick NEGATIVE mg/dL Negative Urine Bilirubin - Dipstick NEGATIVE Negative Urine Ketone NEGATIVE mg/dL Negative Urine Specific Crystal 1.015 N 1.010-1.030 Urine Blood NEGATIVE Negative Urine PH 6.0 Low 6.5-7.5 Urine Protein - Dipstick NEGATIVE mg/dL Negative Urine Urobilinogen - Dipstick 0.2 E.U./dL N 0.2-1.0 Urine Nitrite - Dipstick NEGATIVE Negative Urine Leuk Esterase NEGATIVE Negative Source: URINE, CLEAN CAT <SEE NOTE> 18 Serum or plasma 05/21/2018 N2N/CCD Import Serum or plasma 3.8 3.4-5.0 albumin measurement albumin measurement (mass/volume) (mass/volume) Serum globulin 05/21/2018 N2N/CCD Import Serum globulin 4.1 1.9-4.3 measurement by measurement by calculation (mass/vo calculation (mass/volume) Serum or plasma 05/21/2018 N2N/CCD Import Serum or plasma 0.9 albumin/globulin albumin/globulin mass ratio mass ratio Serum or plasma 05/21/2018 N2N/CCD Import Serum or plasma 1.1 High 0.2- 1.0 total bilirubin total bilirubin measurement (mass/ measurement (mass/volume) Serum or plasma 05/21/2018 N2N/CCD Import Serum or plasma 33 15-37 aspartate aspartate aminotransferase aminotransferase measure measurement (enzymatic activity/volume) Serum or plasma 05/21/2018 N2N/CCD Import Serum or plasma 19 12-78 alanine alanine aminotransferase aminotransferase measureme measurement (enzymatic activity/volume) Serum or plasma 05/21/2018 N2N/CCD Import Serum or plasma 76 45-117 alkaline phosphatase alkaline measurement ( phosphatase measurement (enzymatic activity/volume) Serum or plasma 05/21/2018 N2N/CCD Import Serum or plasma 291 High 26- 192 creatine kinase creatine kinase measurement (enzym measurement (enzymatic activity/volume) Serum or plasma 05/21/2018 N2N/CCD Import Serum or plasma 1.8 0.5-3.6 creatine kinase MB creatine kinase MB measurement (ma measurement (mass/volume) Serum or plasma C 05/21/2018 N2N/CCD Import Serum or plasma C 13.5 High < 3.0 reactive protein reactive protein measurement (ma measurement (mass/volume) Blood Culture 05/21/2018 [facility] Blood Culture NO [address] Aerobic GROWTH: UNRULY [facility] [facility] FINAL [phone] <SEE NOTE> Blood Culture Anaerobic NO GROWTH: FINAL <SEE NOTE> 20 Serum or plasma 05/21/2018 N2N/CCD Import Serum or plasma 7.9 6.4-8.2 protein measurement protein (mass/volume) measurement (mass/volume) Serum or plasma 05/21/2018 N2N/CCD Import Serum or plasma 1.9 1.8-2.4 magnesium magnesium measurement measurement (mass/volume (mass/volume) Anaerobic blood 05/21/2018 N2N/CCD Import Anaerobic blood No Growth culture culture Aerobic blood 05/21/2018 N2N/CCD Import Aerobic blood No Growth culture culture Blood Culture 05/21/2018 [facility] Blood Culture NO GROWTH: [address] Aerobic FINAL <SEE [place] [address] NOTE> [phone] Blood Culture Anaerobic NO GROWTH: FINAL <SEE NOTE> 22 * Miscellaneous 05/21/2018 N2N/CCD Import * Miscellaneous Test(s) studies (set) studies (set) added Aot Request 05/21/2018 [facility] Aot Request Test(s) 23, [address] added [place] [address] [phone] Tests to be added: magnesium,crp,cp <SEE NOTE> 25 Rapid influenza B 05/21/2018 N2N/CCD Import Rapid influenza Negative ( Negative) antigen detection B antigen detection Influenza virus A 05/21/2018 N2N/CCD Import Influenza virus Negative ( Negative) antigen detection A antigen detection Influenza A/B 05/21/2018 [facility] Influenza A Negative (Negative) 26 [address] [place] [address] [phone] Influenza B Antigen Negative (Negative) 27 Laboratory test 05/21/2018 [facility] Lactic Acid 2.7 mmol/L High 0.4-1.9 finding [address] [place] [address] [phone] Laboratory test 05/21/2018 [facility] Troponin-I 0.042 ng/mL 28 finding [address] [place] [address] [phone] CMP Panel (14 05/16/2018 [facility] Glucose 93 mg/dL N 74-106 29 Test) [address] [place] [address] [phone] BUN 24 mg/dL High 7-18 Creatinine 1.4 mg/dL High 0.6-1.3 Glom Filtration Rate, Estimate 38 mL/min >60 If 46 mL/min >60 30 BUN/Creat 17.1 ratio Sodium 137 mmol/L N 136-145 Potassium 3.7 mmol/L N 3.5-5.1 Chloride 99 mmol/L N 98-107 Carbon Dioxide 30 mmol/L N 21-32 Anion Gap 8 mEq/L N 8-16 Calcium 9.0 mg/dL N 8.5-10.1 Total Protein 7.2 g/dL N 6.4-8.2 Albumin 3.7 g/dL N 3.4-5.0 Globulin 3.5 g/dL N 1.9-4.3 Alb/Glob 1.1 ratio Bilirubin,Total 0.9 mg/dL N 0.2-1.0 Sgot/Ast 22 U/L N 15-37 SGPT/Alt 17 U/L N 12-78 Alkaline Phosphatase 93 U/L N 45-117 CMP Panel (14 Test) 03/21/2018 [facility] Glucose 87 mg/dL N 74-106 31 [address] [place] [address] [phone] BUN 27 mg/dL High 7-18 Creatinine 1.3 mg/dL N 0.6-1.3 Glom Filtration Rate, Estimate 42 mL/min >60 If 50 mL/min >60 32 BUN/Creat 20.7 ratio Sodium 137 mmol/L N 136-145 Potassium 3.1 mmol/L Low 3.5-5.1 Chloride 97 mmol/L Low 98-107 Carbon Dioxide 31 mmol/L N 21-32 Anion Gap 9 mEq/L N 8-16 Calcium 9.5 mg/dL N 8.5-10.1 Total Protein 7.5 g/dL N 6.4-8.2 Albumin 4.0 g/dL N 3.4-5.0 Globulin 3.5 g/dL N 1.9-4.3 Alb/Glob 1.1 ratio Bilirubin,Total 1.0 mg/dL N 0.2-1.0 Sgot/Ast 16 U/L N 15-37 SGPT/Alt 19 U/L N 12-78 Alkaline Phosphatase 89 U/L N 45-117 Comprehensive Metabolic 08/24/2017 [facility] Glucose 89 mg/dL N 74-[address] [place] [address] [phone] BUN 20 mg/dL High 7-18 Creatinine 1.2 mg/dL N 0.6-1.3 Glom Filtration Rate, Estimate 46 mL/min >60 If 55 mL/min >60 34 BUN/Creat 16.6 ratio Sodium 138 mmol/L N 136-145 Potassium 4.5 mmol/L N 3.5-5.1 Chloride 102 mmol/L N 98-107 Carbon Dioxide 29 mmol/L N 21-32 Anion Gap 7 mEq/L Low 8-16 Calcium 9.8 mg/dL N 8.5-10.1 Total Protein 7.8 g/dL N 6.4-8.2 Albumin 3.7 g/dL N 3.4-5.0 Globulin 4.1 g/dL N 1.9-4.3 Alb/Glob 0.9 ratio Bilirubin,Total 0.5 mg/dL N 0.2-1.0 Sgot/Ast 18 U/L N 15-37 SGPT/Alt 14 U/L N 12-78 Alkaline Phosphatase 72 U/L N 45-117 CBS W/Automated 08/24/2017 [facility] White Blood 10.5 K/uL N 3.1-10.[address] [place] [address] [phone] Red Blood Count 3.33 M/uL Low 3.90-5.40 Hemoglobin 8.7 gm/dL Low 11.6-15.8 Hematocrit 28.1 % Low 36.0-46.1 Mean Cell Volume 84.4 fl N 80.9-99.0 Mean Corpuscular HGB 26.1 pg N 25.9-32.7 Mean Corpuscular HGB Conc 31.0 g/dL N 30.8-34.3 Platelet Count 469 K/uL High 155-360 Red Cell Distri Width SD 49.1 fl High 3-47 Red Cell Distri Width %CV 16.6 % High 11.7-14.4 Mean Platelet Volume 8.5 fL Low 8.9-12.4 Neut% 66.0 % N 40.4-72.8 Lymph % 16.6 % Low 20.0-42.0 Kleberg % 14.8 % High 4.3-13.2 Eo% 2.3 % N 0.0-6.6 Bas% 0.3 % N 0.0-1.1 Neut# 6.93 K/uL N 1.8-7.0 Lymph # 1.74 K/uL N 1.0-4.0 Kleberg # 1.55 K/uL High 0.3-0.9 Eos # 0.24 K/uL N 0.0-0.5 Baso # 0.03 K/uL N 0.0-0.1 Slide Review 08/24/2017 [facility] Slide Review DIFF ORDERED [address] [place] [address] [phone] Differential-WBC 08/24/2017 [facility] Total Cells 100 #CELLS Confirm [address] [place] [address] [phone] Band% 1 % N 0-8 Neutrophils% 76 % High 33-73 Lymph% 9 % Low 20-42 Atypical Lymph% 4 % N 0-7 Monocyte% 10 % N 0-10 Platelet Estimate SLIGHT INCREASE Anisocytosis 0-1+ Microcytosis 0-1+ Toxic Granulation 0-1+ Differential Comment LARGE PLATELETS <SEE NOTE> 35 Laboratory test 05/16/2017 N2N/CCD Import Creatinine, Urine 16.6 mg/dL 36, 37 finding Microalbumin < 7.0 ug/ml 5.0-20.0 TSH 1.85 uIU/mL 0.35-4.94 CBC With Auto Diff 05/16/2017 N2N/CCD Import Abs Basophils 0.1 K/uL 0.0- 0.3 Abs Eosinophils 0.2 K/uL 0.0-0.5 Abs Lymphocytes 1.4 K/uL 0.8-5.5 Abs Monocytes 1.1 K/uL High 0.1-1.0 Abs Neutrophils 9.0 K/uL High 2.1-8.0 Basophil 0.5 % 0.0-4.0 Eosinophil 1.9 % 0.0-5.0 Hematocrit 26.3 % Low 36.0-47.0 Hemoglobin 8.5 gm/dL Low 12.0-16.0 Lymphocyte 11.6 % Low 16.0-52.0 MCH 24.5 pg Low 27.0-32.0 MCHC 32.5 g/dL 32.0-36.0 MCV 75.4 fL Low 80.0-97.0 MPV 8.0 FL 7.1-10.7 Monocyte 9.6 % 2.0-10.0 Neutrophil 76.4 % High 35.0-75.0 PLT Count 498 K/ul High 140-400 RBC 3.49 M/uL Low 4.00-5.40 RDW 18.4 % High 11.5-14.5 WBC 11.8 K/uL High 4.1-11.0 Comprehensive Met 05/16/2017 N2N/CCD Import A/G Ratio 1.7 Ratio 1.0-2.2 Panel-FCMG Nanci Egfr >60 >60 38 Albumin 4.5 g/dL 3.6-4.9 Alkaline Phosphatase 114 U/L 24-140 Alt 31 U/L 3-42 Anion Gap 12 mmol/L 5-15 39 Ast 41 U/L 8-42 BUN 24 mg/dL 6-26 Calcium 10.2 mg/dL 8.5-10.2 Carbon Dioxide 35 mmol/L High 24-34 Chloride# 91 mmol/L Low 97-110 40 Creatinine 1.0 mg/dL 0.5-1.4 Globulin 2.6 g/dL 2.0-3.5 Glucose 99 mg/dL 70-105 Non Nanci Egfr 54 1 Low >60 41 Potassium 3.4 mmol/L Low 3.5-5.2 Sodium 138 mmol/L 135-146 42 Total Bilirubin 0.9 mg/dL 0.1-1.3 Total Protein 7.1 g/dL 6.0-8.0 Hemoglobin A1c 05/16/2017 N2N/CCD Import Estimated Average 117 mg/dL 71- 140 Glucose Calc Hemoglobin A1c 5.7 % 4.1-5.9 Lipid 05/16/2017 N2N/CCD Import Chol/ HDL Ratio 2.8 ratio Low 3.7-5.6 Cholesterol 140 mg/dL 50-199 HDL 51 mg/dL 35-85 43 LDL (Calc) 71 mg/dL 20-99 44 Triglycerides 93 mg/dL 30-200 VLDL 19 mg/dL 2-29 Peritoneal FLD 04/17/2017 [facility] Peritoneal FLD Color YELLOW 45 cc/Diff [address] [place] [address] [phone] Peritoneal FLD Appearance HAZY Peritoneal FLD WBC 1425 /uL High 0-300 Peritoneal FLD RBC < 22195 /uL -95753 Peritoneal FLD Poly 20 % N 0-25 Peritoneal FLD Lymphs 35 % Peritoneal Fluid Monocytes 14 % Peritoneal FLD Other Cell 31 % 46 Peritoneal FLD Diff Comment . 47 Laboratory test 04/17/2017 [facility] Peritoneal FLD 3.5 g/dL . [address] [place] [address] [phone] Act Partial 04/17/2017 [facility] Act Partial 48.7 seconds High 23.4- [address] Time [address] Thrombo Time 35.0 [place] [address] [phone] Anticoagulant Therapy? YES Date of Last Dose: U Protime 04/17/2017 [facility] Protime 17.9 seconds High 12.0-14.[address] [place] [address] [phone] Inr 1.5 High 0.9-1.1 50 Anticoagulant Therapy? YES Date of Last Dose: U Slide Review 04/12/2017 [facility] Slide Review DIFF ORDERED 51 [address] [place] [address] [phone] Anticoagulant Therapy? NO Differential-WBC Confirm 04/12/2017 [facility] Total Cells 100 #CELLS [address] [place] [address] [phone] Metamyelocyte% 1 % 0% Band% 4 % N 0-8 Neutrophils% 68 % N 33-73 Lymph% 14 % Low 20-42 Monocyte% 14 % High 0-10 Platelet Estimate NORMAL Poikilocytosis 0-1+ Elliptocytes 0-1+ Toxic Granulation 0-1+ Differential Comment LARGE PLATELETS <SEE NOTE> 52 Anticoagulant Therapy? NO Protime 04/12/2017 [facility] Protime 26.0 seconds High 12.0-14.[address] [place], [place] [id number] [phone] Inr 2.4 High 0.9-1.1 53 Anticoagulant Therapy? NO Act Partial 04/12/2017 [facility] Act Partial 54.0 seconds High 23.4-35.0 [address]rom[address] Time [address] [place] [address] [phone] Anticoagulant Therapy? NO CBS W/Automated 04/12/2017 [facility] White Blood 11.1 K/uL High 3.1-10.[address] Count [place], [place] [id number] [phone] Red Blood Count 4.26 M/uL N 3.90-5.40 Hemoglobin 10.6 gm/dL Low 11.6-15.8 Hematocrit 34.8 % Low 36.0-46.1 Mean Cell Volume 81.7 fl N 80.9-99.0 Mean Corpuscular HGB 24.9 pg Low 25.9-32.7 Mean Corpuscular HGB Conc 30.5 g/dL Low 30.8-34.3 Platelet Count 359 K/uL N 155-360 Red Cell Distri Width SD 45.9 fl N 3-47 Red Cell Distri Width %CV 15.9 % High 11.7-14.4 Mean Platelet Volume 10.8 fL N 8.9-12.4 54 Neut# 7.68 K/uL High 1.8-7.0 Lymph # 1.69 K/uL N 1.0-4.0 Kleberg # 1.47 K/uL High 0.3-0.9 Eos # 0.17 K/uL N 0.0-0.5 Baso # 0.05 K/uL N 0.0-0.1 Anticoagulant Therapy? NO Comprehensive Metabolic 04/12/2017 [facility] Glucose 83 mg/dL N 74-[address] [place] [address] [phone] BUN 38 mg/dL High 7-18 Creatinine 1.5 mg/dL High 0.6-1.3 Glom Filtration Rate, Estimate 35 mL/min >60 If 43 mL/min >60 55 BUN/Creat 25.3 ratio Sodium 141 mmol/L N 136-145 Potassium 4.8 mmol/L 3.5-5.1 Chloride 105 mmol/L N 98-107 Carbon Dioxide 30 mmol/L N 21-32 Anion Gap 6 mEq/L Low 8-16 Calcium 9.2 mg/dL N 8.5-10.1 Total Protein 7.3 g/dL N 6.4-8.2 Albumin 3.5 g/dL N 3.4-5.0 Globulin 3.8 g/dL N 1.9-4.3 Alb/Glob 0.9 ratio Bilirubin,Total 1.0 mg/dL N 0.2-1.0 Sgot/Ast 17 U/L N 15-37 SGPT/Alt 20 U/L N 12-78 Alkaline Phosphatase 84 U/L N 45-117 Liver Function 08/11/2016 [facility] Total Protein 8.1 g/dL N 6.4-8.2 [address] [place] [address] [phone] Albumin 3.7 g/dL N 3.4-5.0 Globulin 4.4 g/dL High 1.9-4.3 Alb/Glob 0.8 ratio Bilirubin,Total 1.2 mg/dL High 0.2-1.0 Bilirubin,Direct 0.5 mg/dL High 0.0-0.2 Bilirubin,Indirect 0.7 mg/dL N 0.0-0.9 Sgot/Ast 13 U/L Low 15-37 57 SGPT/Alt 18 U/L N 12-78 Alkaline Phosphatase 112 U/L N 45-117 Laboratory test finding 06/03/2016 N2N/CCD Import Esr 19 mm/hr 0-20 58 CBC With Auto Diff 06/03/2016 N2N/CCD Import Abs Basophils 0.1 K/uL 0.0- 0.3 Abs Eosinophils 0.1 K/uL 0.0-0.5 Abs Lymphocytes 1.2 K/uL 0.8-5.5 Abs Monocytes 1.0 K/uL 0.1-1.0 Abs Neutrophils 8.1 K/uL High 2.1-8.0 Basophil 0.8 % 0.0-4.0 Eosinophil 0.8 % 0.0-5.0 Hematocrit 35.8 % Low 36.0-47.0 Hemoglobin 11.6 gm/dL Low 12.0-16.0 Lymphocyte 11.4 % Low 16.0-52.0 MCH 28.7 pg 27.0-32.0 MCHC 32.3 g/dL 32.0-36.0 MCV 89.1 fL 80.0-97.0 Monocyte 10.0 % 2.0-10.0 Neutrophil 77.0 % High 35.0-75.0 PLT Count 240 K/ul 140-400 RBC 4.02 M/uL 4.00-5.40 RDW 15.9 % High 11.5-14.5 WBC 10.5 K/uL 4.1-11.0 1 NO DX 2 Note: Persistent reduction for 3 months or more in an eGFR <60 mL/min/1.73 m2 defines CKD. Patients with eGFR values >/=60 mL/min/1.73 m2 may also have CKD if evidence of persistent proteinuria is present. The original MDRD equation for estimated GFR is not valid for patients less than 18 years of age. Additional information may be found at [email or web address]. 3 HYPOKALEMIA, COPD EXACERBATION 4 Note: Persistent reduction for 3 months or more in an eGFR <60 mL/min/1.73 m2 defines CKD. Patients with eGFR values >/=60 mL/min/1.73 m2 may also have CKD if evidence of persistent proteinuria is present. The original MDRD equation for estimated GFR is not valid for patients less than 18 years of age. Additional information may be found at [email or web address]. 5 Instrument flagged sample for slide review. Less than 10% Bands seen, no other immature WBC's seen. Platelet estimate=Normal 6 THERAPEUTIC INR RANGE: 2.0 - 3.0 DVT, Pulmonary embolus, prophylaxis against venous thrombosis or systemic embolization in high risk patients. 2.5 - 3.5 Mechanical heart valves 7 Note: Persistent reduction for 3 months or more in an eGFR <60 mL/min/1.73 m2 defines CKD. Patients with eGFR values >/=60 mL/min/1.73 m2 may also have CKD if evidence of persistent proteinuria is present. The original MDRD equation for estimated GFR is not valid for patients less than 18 years of age. Additional information may be found at [email or web address]. 8 Note: Persistent reduction for 3 months or more in an eGFR <60 mL/min/1.73 m2 defines CKD. Patients with eGFR values >/=60 mL/min/1.73 m2 may also have CKD if evidence of persistent proteinuria is present. The original MDRD equation for estimated GFR is not valid for patients less than 18 years of age. Additional information may be found at [email or web address]. 9 Instrument flagged sample for slide review. Less than 10% Bands seen, no other immature WBC's seen. Platelet estimate=NORMAL 10 Note: Persistent reduction for 3 months or more in an eGFR <60 mL/min/1.73 m2 defines CKD. Patients with eGFR values >/=60 mL/min/1.73 m2 may also have CKD if evidence of persistent proteinuria is present. The original MDRD equation for estimated GFR is not valid for patients less than 18 years of age. Additional information may be found at [email or web address]. 11 Note: Persistent reduction for 3 months or more in an eGFR <60 mL/min/1.73 m2 defines CKD. Patients with eGFR values >/=60 mL/min/1.73 m2 may also have CKD if evidence of persistent proteinuria is present. The original MDRD equation for estimated GFR is not valid for patients less than 18 years of age. Additional information may be found at [email or web address]. 12 Note: Persistent reduction for 3 months or more in an eGFR <60 mL/min/1.73 m2 defines CKD. Patients with eGFR values >/=60 mL/min/1.73 m2 may also have CKD if evidence of persistent proteinuria is present. The original MDRD equation for estimated GFR is not valid for patients less than 18 years of age. Additional information may be found at [email or web address]. 13 Method: [employer] Hemoccult Card 14 Presumptive negative for L. pneumophila serogroup 1 antigen in urine, suggesting no recent or current infection. Legionnaires' disease cannot be ruled out since other serogroups and species may also cause disease. 15 0.0 - 0.045 ng/mL: Normal 0.046 - 0.5 ng/mL: Suggestive 0.6 - 1.5 ng/mL: Consistent 16 SITTING UP IN BED 17 Note: Persistent reduction for 3 months or more in an eGFR <60 mL/min/1.73 m2 defines CKD. Patients with eGFR values >/=60 mL/min/1.73 m2 may also have CKD if evidence of persistent proteinuria is present. The original MDRD equation for estimated GFR is not valid for patients less than 18 years of age. Additional information may be found at [email or web address]. 18 URINE, CLEAN CATCH 19 NO GROWTH: FINAL REPORT 20 NO GROWTH: FINAL REPORT 21 NO GROWTH: FINAL REPORT 22 NO GROWTH: FINAL REPORT 23 TROUBLE BREATHING, SENT BY 24 Tests: magnesium,crp,cpk, ckmb Instructions: 25 magnesium,crp,cpk, ckmb 26 HYPOKALEMIA, COPD EXACERBATION 27 Please Note: A POSITIVE result for influenza A and/or B antigen does not rule out a co-infection with other pathogens or identify any specific influenza A virus subtype. A NEGATIVE result for influenza A and/or B antigen does not preclude influenza virus infection and should not be the sole basis for treatment or other management decisions, since the antigen present in the specimen may be below the detection limit of the test. A NEGATIVE result is PRESUMPTIVE and it is recommended these results be confirmed by virus culture or an FDA-cleared influenza A and B molecular assay. Method: [email or web address] Chromatographic immunoassay 28 0.0 - 0.045 ng/mL: Normal 0.046 - 0.5 ng/mL: Suggestive 0.6 - 1.5 ng/mL: Consistent 29 127.0 30 Note: Persistent reduction for 3 months or more in an eGFR <60 mL/min/1.73 m2 defines CKD. Patients with eGFR values >/=60 mL/min/1.73 m2 may also have CKD if evidence of persistent proteinuria is present. The original MDRD equation for estimated GFR is not valid for patients less than 18 years of age. Additional information may be found at [email or web address]. 31 I27.0 32 Note: Persistent reduction for 3 months or more in an eGFR <60 mL/min/1.73 m2 defines CKD. Patients with eGFR values >/=60 mL/min/1.73 m2 may also have CKD if evidence of persistent proteinuria is present. The original MDRD equation for estimated GFR is not valid for patients less than 18 years of age. Additional information may be found at [email or web address]. 33 Z01.812 34 Note: Persistent reduction for 3 months or more in an eGFR <60 mL/min/1.73 m2 defines CKD. Patients with eGFR values >/=60 mL/min/1.73 m2 may also have CKD if evidence of persistent proteinuria is present. The original MDRD equation for estimated GFR is not valid for patients less than 18 years of age. Additional information may be found at [email or web address]. 35 LARGE PLATELETS PRESENT. 36 This sample is drawn by: 37 Unable to calculate ratio. Microalbumin <7.0 38 Concerning GFR Guidelines for Americans: Normal function or mild renal disease, if clinically at risk: >/=60 mL/min Moderately decreased: 30-59 Severely decreased: 15-29 Renal failure: <15 39 Updated Reference Range 40 Updated reference range on new analyzer 41 Concerning GFR Guidelines: Normal function or mild renal disease, if clinically at risk: >/=60 mL/min Moderately decreased: 30-59 Severely decreased: 15-29 Renal failure: <15 Glomerular Filtration Rate (GFR) is estimated based on the MDRD equation, which assumes a steady state for creatinine as recommended by the National Kidney Disease Education Program in conjunction with the National Institutes of Health and the [employer]. Clinical conditions in which it may be necessary to measure GFR by using clearance methods include extremes of age and body size, severe malnutrition or obesity, diseases of skeletal muscle, paraplegia or quadriplegia, vegetarian diet, rapidly changing kidney function, and calculation of the dose of potentially toxic drugs that are excreted by the kidneys. 42 Updated reference range on new analyzer 43 Per NCEP ATP III Guidelines: Results lower than 40 mg/dL are suggestive of increased risk for coronary artery disease. Results > or=to 60 mg/dL are considered a negative risk factor. 44 Per NCEP ATP III Guidelines: Normal Population <130 Patients with medical conditions: CHD/DM Optimal: <100 Borderline high: 130-159 High: 160-189 Very high: >189 45 ABD DISTENSION 46 21 HISTIOCYTES 10 MESOTHELIALS 47 Hematology Consultation Final Report Case# [id number] Final Diagnosis Specimen labeled peritoneal fluid: - The specimen shows benign mesothelial cells, monocytes, neutrophils, lymphocytes, and red blood cells. Comment: This case was correlated with cytology case ([id number]). GY 04/20/17 Gross Description Peritoneal fluid HERBERT PEREZ MD, Pathologist Reported 04/20/2017 at 11:18PM, Report electronically signed Performed at: [facility] [id number] [place] [address] 48 : Peritoneal : Pleural : Synovial : : : : : : : Transudate : Exudate : : : : : : : : Not Estab. : <3 g/dL : >3 g/dL : <2.5 g/dL : : : : : : The method performance specifications have not been established for this test in body fluid. The test result should be integrated into the clinical context for interpretation. The method performance specifications have not been established for this test in body fluid. The test result should be integrated into the clinical context for interpretation. Performed at: RN - [facility] [address] [id number] Radar Signal Processing Engineer: Radha Johnson MD, Phone: [phone] [phone] 50 THERAPEUTIC INR RANGE: 2.0 - 3.0 DVT, Pulmonary embolus, prophylaxis against venous thrombosis or systemic embolization in high risk patients. 2.5 - 3.5 Mechanical heart valves 51 N17.9 52 LARGE PLATELETS PRESENT. 53 THERAPEUTIC INR RANGE: 2.0 - 3.0 DVT, Pulmonary embolus, prophylaxis against venous thrombosis or systemic embolization in high risk patients. 2.5 - 3.5 Mechanical heart valves 54 04/12/17 1714: NEUT% previously reported as: 69.4 % Amended result called to: [] - 04/12/17 at 1714 04/12/17 1714: LYMPH % previously reported as: 15.3 L % Amended result called to: [] - 04/12/17 at 1714 04/12/17 1714: MONO % previously reported as: 13.3 H % Amended result called to: [] - 04/12/17 at 1714 04/12/17 1714: EO% previously reported as: 1.5 % Amended result called to: [] - 04/12/17 at 1714 04/12/17 1714: BAS% previously reported as: 0.5 % Amended result called to: [] - 04/12/17 at 1714 55 Note: Persistent reduction for 3 months or more in an eGFR <60 mL/min/1.73 m2 defines CKD. Patients with eGFR values >/=60 mL/min/1.73 m2 may also have CKD if evidence of persistent proteinuria is present. The original MDRD equation for estimated GFR is not valid for patients less than 18 years of age. Additional information may be found at www.kdoqi.org. 56 I27.0 57 Values below the stated reference ranges of AST and ALT can be seen in normal populations. Clinical correlation is suggested. 58 This sample is drawn by: Procedures Date Code Description Status 05/17/2018 23824 Spirometry Completed 05/17/2018 63075 Spirometry Completed 12/26/2016 15370154 Colonoscopy Completed 07/11/2016 56027 Bronchospasm Provocation Evaluation Multi Spirometric Completed Determinati 07/11/2016 32277 Spirometry Completed 04/22/2016 82647 Stress Test Interpre And Report Only Completed 04/22/2016 48319 Stress Test Physician Super Only Completed 04/22/2016 12194 Myocardial Imaging Tomographic Multiple Study AT Rest Completed Or Stress 11/04/2008 Asp./Injection major joint Completed 06/13/2008 Asp./Injection major joint Completed 01/07/2008 Asp./Injection major joint Completed 07/30/2007 Asp./Injection major joint Completed 01/11/2007 Asp./Injection major joint Completed 04/10/2006 Asp./Injection major joint Completed 05/26/2005 Asp./Injection major joint Completed Encounters Type Date Location Provider Dx Diagnosis Office Visit 06/12/2018 [facility] [place] I27.0 Primary pulmonary 2:00p hypertension R53.1 Weakness E87.1 Hypo-osmolality and hyponatremia Office Visit 05/16/2018 2:20p PulmonLe Dixon, I27.0 Primary pulmonary PA hypertension R09.02 Hypoxemia J00 Acute nasopharyngitis [common cold] Office Visit 03/21/2018 11:00a PulmonLe Dixon I27.0 Primary pulmonary PA hypertension R09.02 Hypoxemia Office Visit 02/07/2018 10:00a PulmonLe Dixon I27.0 Primary pulmonary PA hypertension R09.02 Hypoxemia J20.9 Acute bronchitis, unspecified Office Visit 12/28/2017 1:45p PulmonUlysses Rodriguez I27.0 Primary pulmonary MD hypertension 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, bronchus and lung J30.89 Other allergic rhinitis Office Visit 08/24/2017 1:30p PulmonUlysses Rodriguez I27.0 Primary pulmonary MD hypertension 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, bronchus and lung J30.89 Other allergic rhinitis Z01.812 Encounter for preprocedural laboratory examination Office Visit 06/26/2017 11:45a PulmonUlysses Rodriguez I27.0 Primary pulmonary MD hypertension 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, bronchus and lung J30.89 Other allergic rhinitis K74.60 Unspecified cirrhosis of liver Office Visit 04/28/2017 1:00p PulmonUlysses Rodriguez I27.0 Primary pulmonary MD hypertension K74.60 Unspecified cirrhosis of liver J30.89 Other allergic rhinitis R09.02 Hypoxemia R18.8 Other ascites 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, bronchus and lung Office Visit 04/12/2017 2:15p PulmonUlysses Rodriguez I27.0 Primary pulmonary MD hypertension 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, bronchus and lung J30.89 Other allergic rhinitis R14.0 Abdominal distension (gaseous) N17.9 Acute kidney failure, unspecified Office Visit 01/24/2017 4:00p Pulmonology Ulysses Khan, I27.0 Primary pulmonary MD hypertension Office Visit 12/13/2016 3:45p Pulmonology Ulysses Khan, I27.0 Primary pulmonary MD hypertension 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, bronchus and lung J30.89 Other allergic rhinitis Office Visit 11/10/2016 2:30p Pulmonology Ulysses Khan, I27.0 Primary pulmonary MD hypertension 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 You do not have COPD and taking Spiriva is not indicated and is a risk for other side effects. We will repeat labs on Monday. I will call your home nurse to see if she can do it at home.We will check with Dr. Frias on the sodium issue and we will call you with the final outcome. Continue to monitor your weight every day, call if there is a 2-3 pound weight change in oneday. Call if there is increased swelling in your legs or abdomen.R53.1 WeaknessComments:Please continue Physical HgjlxhnF33.1 Hypo- osmolality and hyponatremia
--- NOTE | 2018-07-11 17:24 | ED ---
Complex/Multi-Sys Presentation - HPI Summary HPI Summary: Pt is an 83 y/o F presenting to the ED with a chief bowel complaint. Per the visiting nurse, she has not had a bowel movement in the last week despite taking many laxatives and having been given an enema, has been retaining fluid, and her weight has been fluctuating. Just over the past 4-5 weeks, she went from 165lbs to 177lbs, down to 132lbs, and then back up to 140s. She also c/o sores on her bilateral legs. She also states she has back pain that comes as spasms. Shes been to [facility] as well as [facility] [place], and they did not help the fluid or the back pain. They did dx her with a UTI. In summary, she complains of back pain, constipation, and diffuse whole body edema, with associated sores on her bilateral LE. She denies decreased appetite, vomiting, nausea, and abd pain. - History Of Current Complaint Chief Complaint: EDBackInjuryPain Time Seen by Provider: 07/11/18 16:52 Hx Obtained From: Patient, Family/Car Coupler Onset/Duration: Gradual Onset, Lasting Weeks, Still Present Timing: Constant, Weeks Severity Currently: Moderate Severity Initially: Moderate Location: Negative Associated Signs And Symptoms: Positive: Edema, Back Pain, Other - sores on bilateral LE, constipation, abd distention, weight fluctuance. Negative: Nausea , Vomiting, Abdominal Pain, Decreased Oral Intake - Allergies/Home Medications Allergies/Adverse Reactions: Allergies Allergy/AdvReac Type Severity Reaction Status Date / Time No Known Allergies Allergy Verified 07/11/18 12:01 PMH/Surg Hx/FS Hx/Imm Hx Previously Healthy: Yes Endocrine/Hematology History: Reports: Hx Diabetes - II Denies: Hx Thyroid Disease Cardiovascular History: Reports: Hx Hypertension - on meds Respiratory History: Reports: Hx Asthma Denies: Hx Chronic Obstructive Pulmonary Disease (COPD) GI History: Denies: Hx Ulcer - Cancer History Cancer Type, Location and Year: Left breast - Surgical History Surgery Procedure, Year, and Place: b/l knee replacements, LEFT MASTECTOMY Infectious Disease History: No Infectious Disease History: Denies: Hx Hepatitis, Hx Human Immunodeficiency Virus (HIV), Traveled Outside the [place] in Last 30 Days - Family History Known Family History: Positive: Respiratory Disease - COPD, Other - parkinson's - Social History Lives: Alone Alcohol Use: Occasionally Hx Substance Use: No Substance Use Type: Reports: None Hx Tobacco Use: No Smoking Status (MU): Never Smoked Tobacco Review of Systems Positive: Other - constipation. Negative: Abdominal Pain, Vomiting, Nausea Positive: Myalgia - back pain, Edema Positive: Other - sores on bilat LE All Other Systems Reviewed And Are Negative: Yes Physical Exam - Summary Physical Exam Summary: Constitutional: Well-developed, Well-nourished, Alert. (-) Distressed Skin: Warm, Dry HENT: Normocephalic; Atraumatic Eyes: Conjunctiva normal Neck: Musculoskeletal ROM normal neck. (-) JVD, (-) Stridor, (-) Tracheal deviation Cardio: Rhythm regular, rate normal, Heart sounds normal; Intact distal pulses; The pedal pulses are 2+ and symmetric. Radial pulses are 2+ and symmetric. (-) Murmur Pulmonary/Chest wall: L-sided mastectomy noted. Effort normal. (-) Respiratory distress, (-) Wheezes, (-) Rales Abd: Soft, (-) tenderness, (+) Distension, (-) Guarding, (-) Rebound Musculoskeletal: (-) Edema, Pain in back with ROM Lymph: (-) Cervical adenopathy Neuro: Alert, Oriented x3 Psych: Mood and affect Normal Triage Information Reviewed: Yes Vital Signs On Initial Exam: Initial Vitals Temp Pulse Resp BP Pulse Ox 98.2 F 75 18 126/84 94 07/11/18 11:54 07/11/18 11:54 07/11/18 11:54 07/11/18 11:54 07/11/18 11:54 Vital Signs Reviewed: Yes Diagnostics - Vital Signs Vital Signs Temp Pulse Resp BP Pulse Ox 07/11/18 16:00 97.1 F 74 16 134/76 98 07/11/18 13:46 97.5 F 91 18 129/90 94 07/11/18 11:54 98.2 F 75 18 126/84 94 - Laboratory Result Diagrams: 07/11/18 17:29 07/11/18 17:29 Lab Statement: Any lab studies that have been ordered have been reviewed, and results considered in the medical decision making process. - Radiology Abd XR Radiology Interpretation Completed By: ED Physician Summary of Radiographic Findings: Air fluid levels in R abd and throughout the intestine. Pending official radiology report. L-spine XR Radiology Interpretation Completed By: ED Physician Summary of Radiographic Findings: L1 compression fracture. Pending official radiology report. CXR Radiology Interpretation Completed By: ED Physician Summary of Radiographic Findings: No acute process. Pending official radiology report. Re-Evaluation - Re-Evaluation 1st re-eval Re-Evaluation Time: 19:09 Change: Unchanged Comment: I discussed results with the patient. 2nd re-eval Re-Evaluation Time: 20:56 Change: Unchanged Comment: I discussed the results with the patient as well as the plan to admit, and she is stable and agreeable with the plan. Complex Multi-Symp Course/Dx Course Of Treatment: Pt is an 83 y/o F presenting to the ED with a chief bowel complaint. She complains of retaining fluid causing her abd to be distended, constipation with no BM for over 7 days despite using laxatives and an enema, sores on her bilateral lower legs, and whole body edema. She denies decreased appetite, vomiting, nausea, and abd pain. She has a current dx of UTI. Upon exam, the pt's abd is distended but nontender, and there is some pain in the back with ROM. L-sided mastectomy noted. Pts hematology is WNL. Her chemistry shows Sodium of 133, chloride of 100, Creatinine of 0.98, Calcium of 10,6, and alkaline phosphate of 114. Her potassium is 5.1, and her BNP is 443. CXR shows no acute process, pending official radiology report. Abd XR shows air fluid levels in the R abd and throughout the intestine, pending official radiology report. L-spine XR shows L1 compression fracture, also pending official radiology report. The pt will be admitted under Dr. Fuller with dx including back pain, UTI, and constipation, as of 2051. I discussed the results and plan with the patient as of 2055 and she is stable and agreeable with this plan. - Diagnoses Provider Diagnoses: Back pain, UTI (urinary tract infection), Constipation Discharge - Sign-Out/Discharge Documenting (check all that apply): Patient Departure - Discharge Plan Condition: Stable Disposition: ADMITTED TO [facility] Referrals: Altagracia VASQUEZ,Lou Alegre [Primary Care Provider] - - Billing Disposition and Condition Condition: STABLE Disposition: Admitted to [facility] - Attestation Statements Document Initiated by Scribe: Yes Documenting Scribe: Tamanna Foss Provider For Whom Scribe is Documenting (Include Credential): Samara Orellana MD. Scribe Attestation: I, Tamanna Foss, scribed for Samara Lopez MD. on 07/11/18 at 2233. Scribe Documentation Reviewed: Yes Provider Attestation: The documentation as recorded by the scribe, Tamanna Foss accurately reflects the service I personally performed and the decisions made by me, Samara Lopez MD. Status of Scribe Document: Viewed Consult Consult: I spoke with Dr. Fuller at 2051 who will be accepting the pt to [facility] with dx including back pain, UTI, and constipation.
[2018-07-11 17:43] LABS: ABS Basophils 0 10^3/ul (0-0.2); ABS Eosinophils 0.1 10^3/ul (0-0.6); ABS Lymphocytes 0.9 10^3/ul (1.0-4.8); ABS Monocytes 0.9 10^3/ul (0-0.8); ABS Neutrophils 5.3 10^3/ul (1.5-7.7); ABS Nucleated RBC 0 10^3/ul; Eosinophil % 1.1 %; Hematocrit 37 % (35-47); Lymphocyte % 12.2 %; Mean Corpuscular HGB Conc 33 g/dL (31-36); Mean Corpuscular Hemoglobin 28 pg (27-31); Mean Corpuscular Volume 86 fL (80-97); Nucleated Red Blood Cells % 0; Platelet Count 333 10^3/uL (150-450); Red Blood Count 4.26 10^6 /uL (3.70-4.87); Red Cell Distribution Width 20 % (10.5-15); White Blood Count 7.2 10^3/uL (3.5-10.8)
[2018-07-11 18:00] LABS: Albumin 4.6 g/dL (3.2-5.2); Albumin/Globulin Ratio 1.5 (1-3); BUN/Creatinine Ratio 17.3 (8-20); Calcium 10.6 mg/dL (8.6-10.3); EGFR African American 65.6 (>60); EGFR Non-African American 54.2 (>60); Total Bilirubin 0.9 mg/dL (0.2-1.0); Total Protein 7.6 g/dL (6.4-8.9)
[2018-07-11 18:05] LABS: Urine Appearance Cloudy; Urine Bacteria Absent (Absent); Urine Bilirubin Negative (Negative); Urine Blood Negative (Negative); Urine Color Yellow; Urine Glucose Negative (Negative); Urine Ketones Negative (Negative); Urine Nitrite Negative (Negative); Urine Protein Negative (Negative); Urine Red Blood Cell Absent (Absent); Urine Specific Gravity 1.008 (1.010-1.030); Urine Squamous Epithelial Cell Present (Absent); Urine Urobilinogen Negative (Negative); Urine White Blood Cell 3+(>20/hpf) (Absent)
[2018-07-11 18:16] LABS: Potassium 5.1 mmol/L (3.5-5.0)
--- NOTE | 2018-07-11 21:59 | ADMNOTE ---
Subjective Date of Service: 07/11/18 Interval History: HISTORY and PHYSICAL PCP: Lou Frias MD [employer] Machinist: Linda paulino Aledo CC: back pain HPI: Patient is 82 year old woman with history of pulmonary hypertension who developed 10/10 back pain earlier in the day. Any movement seems to cause spasms. She denies any falls. Pain is located in lower lumbar area. She has had milder back pain for more than a week. Patient also reports no bowel movement for 7 days. She has abdominal bloating but no pain. No anorexia or vomiting. Denies passing flatus. Patient has pulmonary hypertension, and tendency to have severe edema. She was hospitalized for 1 week for volume overload at [facility] earlier in June, diuresis brought weight down to 130-135 lb range. Since discharge, she has gained back weight to 140s range. Patient was at [facility] again 5 days ago, when back pain was milder, and she was diagnosed with a UTI. She has been on cephalexin for 5 days. 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 [place], no tobacco abuse, no alcohol or drug use Past Medical History: Findings - pulmonary hypertension, systemic arterial hypertension, type 2 diabetes (diet controlled,) allergic rhinitis, h/o breast cancer, osteoporosis, atrial fibrillation, CHF; SurgHx: bilat TKR, left mastectomy Review of Systems - Measurements Intake and Output: Intake and Output Last 24 Hours 07/09/18 07/10/18 07/11/18 07/12/18 06:59 06:59 06:59 06:59 Weight 63.503 kg - Review of Systems Constitutional Symptoms: Positive: Weight Gain, Fatigue Dermatology: Positive: Normal HEENT: Positive: Normal Eyes: Positive: Normal Thyroid: Positive: Normal Pulmonary: Positive: Shortness of Breath Cardiology: Positive: Swelling of Ankles, Edema Gastroenterology: Positive: Constipation, Change in Bowel Habits Genitourinay - Female: Positive: Menopause Musculoskeletal: Positive: Joint Pain Endocrinology: Positive: Diabetes Mellitus Neurology: Positive: Normal Psychiatry: Positive: Normal Objective Active Medications: Home Medications: see medication reconciliation sheet Vital Signs - 8 hr 07/11/18 07/11/18 16:00 19:30 Temperature 36.2 C 36.2 C Pulse Rate 74 72 Respiratory 16 16 Rate Blood Pressure 134/76 131/76 (mmHg) O2 Sat by Pulse 98 96 Oximetry Oxygen Devices in Use Now: None Appearance: alert, no distress Eyes: No Scleral Icterus Ears/Nose/Mouth/Throat: NL Teeth, Lips, Gums Neck: NL Appearance and Movements; NL JVP Respiratory: Symmetrical Chest Expansion and Respiratory Effort, Clear to Auscultation Cardiovascular: NL Sounds; No Murmurs; No JVD, - - 1+ edema bilat LE Abdominal: No Hepatosplenomegaly, - - +BS, soft, distended Lymphatic: No Cervical Adenopathy Extremities: No Clubbing, Cyanosis Skin: No Rash or Ulcers Neurological: Alert and Oriented x 3 Lines/Tubes/Other Access: Clean, Dry and Intact Peripheral IV Nutrition: Taking PO's Result Diagrams: 07/11/18 17:29 07/11/18 17:29 Additional Lab and Data: Laboratory Tests 07/11/18 07/11/18 07/11/18 16:10 16:30 17:29 Glucose 96 Calcium 10.6 H AST 22 ALT 20 Alkaline Phosphatase 114 H B-Natriuretic Peptide 443 H Lipase 28 Ur Specific Otter 1.008 L Ur Leukocyte Esterase 3+ A Urine WBC (Auto) 3+(>20/hpf) A Urine RBC (Auto) Absent Ur Squamous Epith Cells Present A Diagnostic Imaging: Chest X-ray; negative Abdo X-ray; ?SBO CT Abdomen/Pelvis: T11 and L1 compression fracture, no obstruction LS Spine- L2 comp frx EKG Data: pending Assess/Plan/Problems-Billing Assessment: 82 year old with apparent new compression fractures at T11 and L1, hypercalcemia , and constipation - Patient Problems (1) Vertebral compression fracture Current Visit: Yes Status: Acute Priority: High Code(s): M48.50XA - COLLAPSED VERTEBRA, NEC, SITE UNSP, INIT SNOMED Code(s): 96949911 Comment: -Patient will be admitted for observation -Patient agrees to pain control with low-risk opiates -In presence of hypercalcemia, may have malignant pathological fractures -MRI thoracic and lumbar spine ordered -physical therapy will be initiated (2) Constipation Current Visit: Yes Status: Acute Priority: Medium Code(s): K59.00 - CONSTIPATION, UNSPECIFIED SNOMED Code(s): 76153514 Comment: -no obstruction seen on CT -will start with enema and oral lactulose (3) UTI (urinary tract infection) Current Visit: Yes Status: Acute Priority: Medium Comment: -unclear whether fully treated w/ keflex -will stop antibiotics, follow current culture, consider retreatment on that basis (4) DVT prophylaxis Current Visit: Yes Status: Acute Priority: Low Code(s): [id number] - SNOMED Code(s): 130395280 Comment: -moderate risk -SCDs started (5) Hypercalcemia Current Visit: Yes Status: Acute Priority: Medium Code(s): E83.52 - HYPERCALCEMIA SNOMED Code(s): 09326682 Comment: -Concerning for osteomalacia vs malignancy -PTH, vitamin D, ionized calcium will be checked in AM (6) Advance directive indicates patient wish for full code resuscitation status Current Visit: Yes Status: Acute Priority: Medium Code(s): [id number] - SNOMED Code(s): 688037758 Comment: -discussed with patient, she would accept time-limited intubation, cardiac resucitation. (7) Pulmonary hypertension Current Visit: Yes Status: Acute Priority: Medium Code(s): I27.20 - PULMONARY HYPERTENSION, UNSPECIFIED SNOMED Code(s): 78663622 Comment: -Due to weight gain, will add back torsemide -Will obtain records from [place] Status and Disposition: observation
[2018-07-11] MEDS ORDERED: traMADol TAB* 50 MG PO PRN (22:44)
[2018-07-11] MEDS ORDERED: Mineral Oil ENEMA* 1 BOTTLE PR ONE (22:56)
[2018-07-12] MEDS: Spironolactone TAB* 25 MG PO SCH ×3 (00:18→22:45)
[2018-07-12] MEDS: SILDENAFIL 20 MG PO SCH ×4 (00:51→22:45)
[2018-07-12] MEDS: Torsemide TAB 10 MG PO SCH (08:18)
[2018-07-12] MEDS: Metoprolol Tartrate TAB* 25 MG PO SCH ×2 (08:18→22:46)
[2018-07-12] MEDS: Pantoprazole TAB * 40 MG TAB PO SCH (08:18)
[2018-07-12] MEDS: Metolazone TAB* 5 MG PO SCH (08:18)
[2018-07-12] MEDS ORDERED: Magnesium Hydroxide LIQ* 30 ML UDC PO PRN (08:36)
[2018-07-12] MEDS ORDERED: Metolazone TAB* 5 MG PO SCH (09:00)
[2018-07-12] MEDS ORDERED: Ondansetron INJ* 2 MG/ML VIAL IV PRN (09:20)
[2018-07-12 10:17] LABS: BUN/Creatinine Ratio 14.3 (8-20); Calcium 10.7 mg/dL (8.6-10.3); EGFR African American 65.6 (>60); EGFR Non-African American 54.2 (>60); Phosphorus 4.2 mg/dL (2.5-5.0); Potassium 4.4 mmol/L (3.5-5.0)
[2018-07-12] MEDS ORDERED: PROCHLORPERAZINE INJ 5 MG/ML 2 ML VIAL IV PRN (10:38)
[2018-07-12] MEDS ORDERED: Magnesium Hydroxide LIQ* 30 ML UDC PO ONE (10:38)
[2018-07-12 10:51] LABS: Vitamin D Total 25(OH) 47.2 ng/mL (20-50)
[2018-07-12] MEDS ORDERED: Magnesium CITRATE* 300 ML BTL PO ONE (13:32)
--- NOTE | 2018-07-12 14:42 | PN ---
Subjective Date of Service: 07/12/18 Interval History: Ms. Madrid is tearful when I enter the room, she has not yet had a bowel movement and feels like her abdomen is getting more distended and her back still hurts. While we were talking, she became suddenly nauseous and vomited bilious liquid. She does not complain of pain in particular, just distension which is uncomfortable. 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 Madrid, no tobacco abuse, no alcohol or drug use Past Medical History: Findings - pulmonary hypertension, systemic arterial hypertension, type 2 diabetes (diet controlled,) allergic rhinitis, h/o breast cancer, osteoporosis, atrial fibrillation, CHF; SurgHx: bilat TKR, left mastectomy Objective Active Medications: Atorvastatin Calcium (Lipitor*) 10 mg PO 1700 [facility] Lactulose (Lactulose*) 30 ml PO QID [facility] Last Admin: 07/12/18 11:07 Dose: Not Given Magnesium Hydroxide (Milk Of MagnSENSIMED Liq*) 30 ml PO Q4H PRN PRN Reason: CONSTIPATION Last Admin: 07/12/18 10:15 Dose: 30 ml Metolazone (Zaroxolyn Tab*) 2.5 mg PO DAILY@0830 [facility] Last Admin: 07/12/18 08:18 Dose: 2.5 mg Metoprolol Tartrate (Lopressor Tab*) 12.5 mg PO BID [facility] Last Admin: 07/12/18 08:18 Dose: 12.5 mg Ondansetron HCl (Zofran Inj*) 4 mg IV Q4H PRN PRN Reason: NAUSEA Last Admin: 07/12/18 10:32 Dose: 4 mg Pantoprazole Sodium (Protonix Tab*) 40 mg PO DAILY [facility] Last Admin: 07/12/18 08:18 Dose: 40 mg Prochlorperazine Edisylate (Compazine Inj*) 5 mg IV Q6H PRN PRN Reason: NAUSEA/VOMITING Last Admin: 07/12/18 13:57 Dose: 5 mg Sildenafil Citrate (Revatio (Nf)) 20 mg PO TID [facility]; Protocol Last Admin: 07/12/18 14:00 Dose: 20 mg Spironolactone (Aldactone Tab*) 50 mg PO BID [facility] Last Admin: 07/12/18 08:18 Dose: 50 mg Torsemide (Torsemide) 20 mg PO DAILY [facility] Last Admin: 07/12/18 08:18 Dose: 20 mg Vital Signs - 8 hr 07/12/18 07/12/18 07/12/18 07:36 08:27 11:13 Temperature 97.1 F Pulse Rate 84 80 Respiratory 17 18 16 Rate Blood Pressure 132/84 114/56 (mmHg) O2 Sat by Pulse 97 90 Oximetry 07/12/18 07/12/18 11:26 14:04 Temperature 97.8 F 97.2 F Pulse Rate 88 Respiratory 20 Rate Blood Pressure 117/59 (mmHg) O2 Sat by Pulse 91 Oximetry Oxygen Devices in Use Now: None Appearance: sitting up in the recliner, uncomfortable Eyes: No Scleral Icterus Ears/Nose/Mouth/Throat: NL Teeth, Lips, Gums Neck: NL Appearance and Movements; NL JVP Respiratory: Symmetrical Chest Expansion and Respiratory Effort, Clear to Auscultation Cardiovascular: NL Sounds; No Murmurs; No JVD, RRR Abdominal: - - distended, firm, very hypoactive bowel sounds, dull to percussion Lymphatic: No Cervical Adenopathy Extremities: - - 3+ edema b/l Skin: - - scattered white plaques over face and neck Neurological: Alert and Oriented x 3 Result Diagrams: 07/11/18 17:29 07/12/18 09:35 Additional Lab and Data: Laboratory Tests 07/11/18 07/11/18 07/11/18 16:10 16:30 17:29 Glucose 96 Calcium 10.6 H AST 22 ALT 20 Alkaline Phosphatase 114 H B-Natriuretic Peptide 443 H Lipase 28 Ur Specific [place] 1.008 L Ur Leukocyte Esterase 3+ A Urine WBC (Auto) 3+(>20/hpf) A Urine RBC (Auto) Absent Ur Squamous Epith Cells Present A Diagnostic Imaging: Chest X-ray; negative Abdo X-ray; ?SBO CT Abdomen/Pelvis: T11 and L1 compression fracture, no obstruction LS Spine- L2 comp frx EKG Data: pending Assess/Plan/Problems-Billing Assessment: 82 year old with apparent new compression fractures at T11 and L1, hypercalcemia , and constipation - Patient Problems (1) Constipation Current Visit: Yes Status: Acute Priority: Medium Code(s): K59.00 - CONSTIPATION, UNSPECIFIED SNOMED Code(s): 38176671 Comment: no obstruction on CT or even mention of distension likely an ileus but the origin is unclear--she does have mild hypercalcemia but ionized is okay, no narcotics concerning for ogilves syndrome I have been unsuccessful with lactulose and milk of mag and a mineral oil enema and am concerned with the worsening distension. Will get a repeat KUB and I am consulting GI for possible decompression. (2) Hypercalcemia Current Visit: Yes Status: Acute Priority: Medium Code(s): E83.52 - HYPERCALCEMIA SNOMED Code(s): 23011048 Comment: ionized calcium okay awaiting PTH, phos, vit d (3) Pulmonary hypertension Current Visit: Yes Status: Acute Priority: Medium Code(s): I27.20 - PULMONARY HYPERTENSION, UNSPECIFIED SNOMED Code(s): 02125999 Comment: presumably PAH since she is on sildenafil with some signs of right sided heart failure but will hold off on diuresis at this point given GI issues (4) UTI (urinary tract infection) Current Visit: Yes Status: Acute Priority: Medium Comment: -unclear whether fully treated w/ keflex -will stop antibiotics, follow current culture, consider retreatment on that basis (5) Vertebral compression fracture Current Visit: Yes Status: Acute Priority: High Code(s): M48.50XA - COLLAPSED VERTEBRA, NEC, SITE UNSP, INIT SNOMED Code(s): 93336074 Comment: In presence of hypercalcemia, may have malignant pathological fractures MRI spine PT avoid narcotics
[2018-07-12] MEDS: Atorvastatin* 10 MG TAB PO SCH (17:22)
[2018-07-12] MEDS ORDERED: Magnesium Hydroxide LIQ* 30 ML UDC ONE (18:00)
[2018-07-12] MEDS ORDERED: GLYCERIN ONE (18:00)
[2018-07-12] MEDS ORDERED: Mineral Oil, LAXITIVE* 30 ML UDC ONE (18:00)
--- NOTE | 2018-07-12 19:24 | CONS ---
CC: Dr. Frias; Dr. Khan * CONSULTATION REPORT: DATE OF CONSULT: 07/12/18 REQUESTING PROVIDER: Dr. Christine Antoine. REASON FOR CONSULT: Abdominal distention, constipation. HISTORY OF PRESENT ILLNESS: This is a pleasant 82-year-old female with a history of pulmonary hypertension, who presented to [facility] with worsening lower lumbar back pain. She was found ultimately to have a compression fracture and was admitted for further observation. She also reported that she did not have a bowel movement for the last 7 days prior to admission. She denies any black or blood in the stool. Since admission, she states that she still has not moved her bowels, but is passing flatus at this point. She states she had a colonoscopy with Dr. Jerad Ag in 2018 that was unremarkable without any polyps, lesions, or masses. She was recommended not to have further colonoscopy per patient, this report is not available to me however. Currently, she denies any abdominal pain. She states that she is passing flatus this afternoon. She had some nausea with scant emesis this afternoon as well. Denies any history of this in the past. She has been sitting in a chair because of her compression fracture and has a significant amount of pain when she tries to lie in the supine position or in bed. She has not had much activity. Weight has been stable. Remainder of the 14-point review of systems is grossly negative. PAST MEDICAL HISTORY: Pulmonary hypertension, diabetes, breast cancer, osteoporosis, atrial fibrillation, CHF. PAST SURGICAL HISTORY: Bilateral TKR, left mastectomy. HOME MEDICATIONS: Include: 1. Ferrous sulfate. 2. Loratadine. 3. Metolazone. 4. Metoprolol. 5. Montelukast. 6. Multivitamins. 7. Omeprazole. 8. Sildenafil. 9. Simvastatin. 10. Spironolactone. ALLERGIES: No known drug allergies. FAMILY HISTORY: No family history of colorectal cancer or GI malignancy. SOCIAL HISTORY: Retired. No alcohol, no tobacco use. REVIEW OF SYSTEMS: Remainder of the 14-point review of systems is grossly negative. PHYSICAL EXAM: Vital Signs: Blood pressure is 115/53, pulse 83, respiratory rate is 18, temperature 98.5, she is 92% on room air. In general, alert and oriented, in no acute distress. HEENT: Atraumatic, normocephalic. Pupils equal, round, reactive to light. Extraocular movements are intact. Conjunctivae are pink. Sclerae anicteric. Cardiovascular: Regular rate and rhythm. S1, S2. Respiratory: Clear to auscultation bilaterally. Abdomen is distended, mildly firm. Bowel sounds present, but slightly hypoactive. No rebound tenderness. Extremities: 3+ edema bilaterally. Skin: Few scattered white plaques over the face and the neck. Psych: Appropriate mood and affect. Rectal Exam: Rectal exam did reveal some palpable stool in the vault that was removed with appropriate sphincter tone and relaxation. DIAGNOSTIC STUDIES/LAB DATA: Hemoglobin 12, WBC count 7.2, platelet count is 333. Sodium 132, potassium 4.4, creatinine 0.98, glucose 118, calcium is 10.7, phosphorus is 4.2. She had a CT on 07/11/18 that showed moderate T11 compression fracture. There was subacute and an L1 compression fracture that was chronic. Personal review of the images reveals some distention and significant stool burden throughout the colon. Abdominal x-ray on 07/12/18, reveals gas shift distention and dilatation of the colon. ASSESSMENT AND PLAN: This is an 82-year-old female with colonic distention, constipation, and potential Karthik's. 1. Colonic distention, large bowel in nature. She had a recent colonoscopy about a year ago, so I doubt this is significant mass lesion, mechanical obstruction contributing to this. She is passing gas today, so I do not believe that she is fully obstructed at this point. After the rectal exam, she had immediate urgency to move her bowels and had a significant flatus with 2 small stools after the exam. She described relief after this movement. I would discontinue the lactulose and milk of magnesia on the oral route at this time. I recommend giving a SMOG enema x1 to further stimulate movement from below. If her condition worsens, would recommend consideration of neostigmine. This would need to be done on telemetry with atropine at the bedside. When starting to pass more flatus and bowels are starting to move slightly, can resume an oral regimen, we will recommend combination of multiple classes of laxative, osmotic and perhaps occasional stimulant. I did discuss briefly colonoscopic decompression and debulking; however, the patient would like to avoid that at this time secondary to her compression fracture. She states she is not able to change positions at this point and would prefer not to do that. If develops pain or distention would get CT to r/o volvulus but given air passed and stool after rectal exam appears unlikely. We will try monitoring with conservative therapy, but ultimately could consider decompression if not improving versus neostigmine. 2. Compression fracture. Per primary team. 3. Hypercalcemia. Per primary team. [id number]/[facility] #: [id number] MTDD
[2018-07-13 06:33] LABS: Hematocrit 37 % (35-47); Hemoglobin 12.1 g/dL (12.0-16.0); Mean Corpuscular HGB Conc 33 g/dL (31-36); Mean Corpuscular Hemoglobin 28 pg (27-31); Mean Corpuscular Volume 85 fL (80-97); Mean Platelet Volume 7.2 fL (7.4-10.4); Platelet Count 353 10^3/uL (150-450); Red Blood Count 4.34 10^6 /uL (3.70-4.87); Red Cell Distribution Width 20 % (10.5-15); White Blood Count 11.5 10^3/uL (3.5-10.8)
[2018-07-13 07:01] LABS: BUN/Creatinine Ratio 15.2 (8-20); Calcium 10.3 mg/dL (8.6-10.3); EGFR African American 49.5 (>60); EGFR Non-African American 40.9 (>60); Magnesium 2.3 mg/dL (1.9-2.7); Potassium 4.4 mmol/L (3.5-5.0)
[2018-07-13] MEDS: Metoprolol Tartrate TAB* 25 MG PO SCH ×2 (09:07→20:15)
[2018-07-13] MEDS: Metolazone TAB* 5 MG PO SCH (09:07)
[2018-07-13] MEDS: Spironolactone TAB* 25 MG PO SCH ×2 (09:07→20:56)
[2018-07-13] MEDS: SILDENAFIL 20 MG PO SCH ×3 (09:07→20:55)
[2018-07-13] MEDS: Pantoprazole TAB * 40 MG TAB PO SCH (09:07)
[2018-07-13] MEDS: Torsemide TAB 10 MG PO SCH (09:07)
[2018-07-13] MEDS ORDERED: fentaNYL* 50 MCG/ML 2 ML VIAL (100 MCG VIAL) ONE (16:20)
[2018-07-13] MEDS ORDERED: Midazolam* 1 MG/ML 10 ML VIAL (10 MG) ONE (16:21)
--- NOTE | 2018-07-13 17:30 | PN ---
Subjective Date of Service: 07/13/18 Interval History: She has been having frequent watery stools. No formed or even loose stools. Only water. Pain is a little decreased. Her friend Mis is here visiting. 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 Madrid, no tobacco abuse, no alcohol or drug use Past Medical History: Findings - pulmonary hypertension, systemic arterial hypertension, type 2 diabetes (diet controlled,) allergic rhinitis, h/o breast cancer, osteoporosis, atrial fibrillation, CHF; SurgHx: bilat TKR, left mastectomy Objective Active Medications: Atorvastatin Calcium (Lipitor*) 10 mg PO 1700 [facility] Last Admin: 07/12/18 17:22 Dose: 10 mg Metolazone (Zaroxolyn Tab*) 2.5 mg PO DAILY@0830 [facility] Last Admin: 07/13/18 09:07 Dose: 2.5 mg Metoprolol Tartrate (Lopressor Tab*) 12.5 mg PO BID [facility] Last Admin: 07/13/18 09:07 Dose: 12.5 mg Ondansetron HCl (Zofran Inj*) 4 mg IV Q4H PRN PRN Reason: NAUSEA Last Admin: 07/12/18 10:32 Dose: 4 mg Pantoprazole Sodium (Protonix Tab*) 40 mg PO DAILY [facility] Last Admin: 07/13/18 09:07 Dose: 40 mg Prochlorperazine Edisylate (Compazine Inj*) 5 mg IV Q6H PRN PRN Reason: NAUSEA/VOMITING Last Admin: 07/12/18 13:57 Dose: 5 mg Sildenafil Citrate (Revatio (Nf)) 20 mg PO TID [facility]; Protocol Last Admin: 07/13/18 12:56 Dose: 20 mg Spironolactone (Aldactone Tab*) 50 mg PO BID [facility] Last Admin: 07/13/18 09:07 Dose: 50 mg Torsemide (Torsemide) 20 mg PO DAILY [facility] Last Admin: 07/13/18 09:07 Dose: 20 mg Vital Signs - 8 hr 07/13/18 11:06 Temperature 98.0 F Pulse Rate 88 Respiratory 16 Rate Blood Pressure 105/45 (mmHg) O2 Sat by Pulse 95 Oximetry Oxygen Devices in Use Now: None Appearance: alert, much more comfortable appearing than yesterday Eyes: No Scleral Icterus Ears/Nose/Mouth/Throat: NL Teeth, Lips, Gums Neck: NL Appearance and Movements; NL JVP Respiratory: Symmetrical Chest Expansion and Respiratory Effort, Clear to Auscultation Abdominal: - - distended, firm, dull to percussion, very hypoactive bowel sounds Lymphatic: No Cervical Adenopathy Extremities: - - 2+ pitting edema Skin: No Rash or Ulcers Neurological: Alert and Oriented x 3, NL Gait Result Diagrams: 07/13/18 05:39 07/13/18 05:39 Additional Lab and Data: Laboratory Tests 07/11/18 07/11/18 07/11/18 16:10 16:30 17:29 Glucose 96 Calcium 10.6 H AST 22 ALT 20 Alkaline Phosphatase 114 H B-Natriuretic Peptide 443 H Lipase 28 Ur Specific [place] 1.008 L Ur Leukocyte Esterase 3+ A Urine WBC (Auto) 3+(>20/hpf) A Urine RBC (Auto) Absent Ur Squamous Epith Cells Present A Microbiology and Other Data: Microbiology 07/11/18 16:10 Urine Culture - Final Urine No Growth (<1,000 CFU/mL) Diagnostic Imaging: Chest X-ray; negative Abdo X-ray; ?SBO CT Abdomen/Pelvis: T11 and L1 compression fracture, no obstruction LS Spine- L2 comp frx EKG Data: pending Assess/Plan/Problems-Billing Assessment: 82 year old with apparent new compression fractures at T11 and L1, hypercalcemia , and constipation - Patient Problems (1) Constipation Current Visit: Yes Status: Acute Priority: Medium Code(s): K59.00 - CONSTIPATION, UNSPECIFIED SNOMED Code(s): 75743456 Comment: no obstruction on CT but colonic dilation noted likely an ileus but the origin is unclear--she does have mild hypercalcemia but ionized is okay, no narcotics check repeat kub again today I do not believe that these "diarrhea" stools are true stools and are decompressing her bowels--I remain concerned for an ileus or large bowel obstruction and appreciate GI's input about whether a sigmoidoscopy for decompression and to rule out a mass may be indicated -- discussed with Dr. Vargas who will come to see her now with rising creatining--will give GENTLE ivf in presents of PAH (2) Hypercalcemia Current Visit: Yes Status: Acute Priority: Medium Code(s): E83.52 - HYPERCALCEMIA SNOMED Code(s): 86353898 Comment: ionized calcium okay (3) Pulmonary hypertension Current Visit: Yes Status: Acute Priority: Medium Code(s): I27.20 - PULMONARY HYPERTENSION, UNSPECIFIED SNOMED Code(s): 43215244 Comment: presumably PAH since she is on sildenafil with some signs of right sided heart failure but will hold off on diuresis at this point given GI issues (4) UTI (urinary tract infection) Current Visit: Yes Status: Acute Priority: Medium Comment: recently treated with keflex, urine culture shows no growth (5) Vertebral compression fracture Current Visit: Yes Status: Acute Priority: High Code(s): M48.50XA - COLLAPSED VERTEBRA, NEC, SITE UNSP, INIT SNOMED Code(s): 80208296 Comment: In presence of hypercalcemia, may have malignant pathological fractures MRI spine negative for spinal cord compression PT avoid narcotics
[2018-07-13] MEDS ORDERED: NS 0.9% 500 ML* 500 ML IV SCH (18:00)
[2018-07-13] MEDS: Atorvastatin* 10 MG TAB PO SCH (18:23)
[2018-07-13] MEDS: Polyethylene Glycol 3350* 17 GM PACKET PO SCH (20:56)
--- NOTE | 2018-07-14 00:19 | PRO ---
DATE: 07/13/18 REFERRING PHYSICIAN: Lou Frias. PROCEDURE: Decompressive colonoscopy to right colon. INDICATION: This 82-year-old woman with COPD and several hospitalizations this spring and now a spinal compression fracture, has not had a formed bowel movement in 8 or 9 days. There has been some liquid result from enemas, but the volume has not been recorded. Yesterday, she vomited a couple of times. She has not run a fever. She continues to feel distended. She has been able to walk short distances but greatly prefers spending all of her time supine head tilted up or in a chair. She has been on ferrous sulfate for over a year. Her caregiver in the area, who lives 7 minutes away says that over a number of years, she has never complained of constipation. Informed consent was obtained and discussion with the patient who was alert and knew of her chronic AFib situation. Outpatient meds include sildenafil for pulmonary indication and metoprolol 12.5 b.i.d., spironolactone 50 b.i.d., metolazone 2.5, and montelukast. ENDOSCOPIST: Sam MEDICATIONS: Midazolam 6, fentanyl 75 in titrated doses with 2 mg of the midazolam having infiltrated. FINDINGS: She is a chronically ill-appearing woman with a distended abdomen that has bowel sounds and no rebound tenderness. The abdomen is firm. Breath sounds are diminished symmetrically. She is in no overt distress, although does not wish to be moved from her supine position. After moderate sedation was induced slowly, she was then positioned left side down. A vigorous rectal exam yielded about 75 cc of viscous fluid. The adult scope was then inserted and encountered some pockets of gas, these were evacuated. Stool was evacuated. Scope advanced fairly easily segment by segment encountering gas filled areas and within a few minutes, the right colon was entered and the air was seen coming through the ileocecal valve. Air exchanges were made and probably 500 cc of viscous stool evacuated. An emphasis was done on air exchanges. No obstruction was seen. There were no areas of diverticular narrowing. No blood was seen. IMPRESSION: 1. Anatomically normal colon to the ileocecal valve. 2. Ileus - decompressed and positioning treatment and enemas hopefully will help. Ferrous sulfate can be discontinued temporarily as her hemoglobin is 12.1 , MCV 85. [id number]/[facility] #: [id number] NARCISO
[2018-07-14] MEDS: HYDROcodone/ACETAMIN 5-325 MG* 1 TAB PO PRN ×2 (05:03→12:28)
[2018-07-14] MEDS ORDERED: NS 0.9% 250 ML* 250 ML IV ONE (07:44)
[2018-07-14] MEDS: SILDENAFIL 20 MG PO SCH ×3 (08:52→20:54)
[2018-07-14] MEDS: Pantoprazole TAB * 40 MG TAB PO SCH (08:52)
[2018-07-14] MEDS: Polyethylene Glycol 3350* 17 GM PACKET PO SCH ×2 (08:53→20:54)
[2018-07-14 08:58] LABS: Hematocrit 35 % (35-47); Hemoglobin 11.6 g/dL (12.0-16.0); Mean Corpuscular HGB Conc 33 g/dL (31-36); Mean Corpuscular Hemoglobin 28 pg (27-31); Mean Corpuscular Volume 86 fL (80-97); Mean Platelet Volume 7.1 fL (7.4-10.4); Platelet Count 318 10^3/uL (150-450); Red Cell Distribution Width 20 % (10.5-15)
[2018-07-14] MEDS ORDERED: Spironolactone TAB* 25 MG PO SCH (09:00)
[2018-07-14 09:19] LABS: BUN/Creatinine Ratio 15.8 (8-20); Calcium 10.3 mg/dL (8.6-10.3); EGFR African American 41.4 (>60); EGFR Non-African American 34.2 (>60); Potassium 4.2 mmol/L (3.5-5.0)
[2018-07-14] MEDS: Metoprolol Tartrate TAB* 25 MG PO SCH ×2 (11:58→20:17)
--- NOTE | 2018-07-14 14:05 | PN ---
Subjective Date of Service: 07/14/18 Interval History: Pt still has abd distention. 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, no tobacco abuse, no alcohol or drug use Past Medical History: Findings - pulmonary hypertension, systemic arterial hypertension, type 2 diabetes (diet controlled,) allergic rhinitis, h/o breast cancer, osteoporosis, atrial fibrillation, CHF; SurgHx: bilat TKR, left mastectomy Objective Active Medications: Hydrocodone Bitart/Acetaminophen ([place] 5-325 Tab*) 1 tab PO Q6H PRN PRN Reason: PAIN Last Admin: 07/14/18 12:28 Dose: 1 tab Atorvastatin Calcium (Lipitor*) 10 mg PO 1700 [facility] Last Admin: 07/13/18 18:23 Dose: 10 mg Metolazone (Zaroxolyn Tab*) 2.5 mg PO DAILY@0830 [facility] Metoprolol Tartrate (Lopressor Tab*) 12.5 mg PO BID [facility] Last Admin: 07/14/18 11:58 Dose: Not Given Ondansetron HCl (Zofran Inj*) 4 mg IV Q4H PRN PRN Reason: NAUSEA Last Admin: 07/12/18 10:32 Dose: 4 mg Pantoprazole Sodium (Protonix Tab*) 40 mg PO DAILY [facility] Last Admin: 07/14/18 08:52 Dose: 40 mg Polyethylene Glycol/Electrolytes (Miralax*) 17 gm PO 0800,2100 [facility] Last Admin: 07/14/18 08:53 Dose: 17 gm Prochlorperazine Edisylate (Compazine Inj*) 5 mg IV Q6H PRN PRN Reason: NAUSEA/VOMITING Last Admin: 07/12/18 13:57 Dose: 5 mg Sildenafil Citrate (Revatio (Nf)) 20 mg PO TID [facility]; Protocol Last Admin: 07/14/18 08:52 Dose: 20 mg Spironolactone (Aldactone Tab*) 50 mg PO BID [facility] Torsemide (Torsemide) 20 mg PO DAILY [facility] Vital Signs - 8 hr 07/14/18 07/14/18 07/14/18 07:22 08:00 08:10 Temperature 97.0 F Pulse Rate 76 Respiratory 18 18 18 Rate Blood Pressure 93/52 (mmHg) O2 Sat by Pulse 95 Oximetry 07/14/18 07/14/18 10:38 12:28 Temperature 98.0 F Pulse Rate 84 Respiratory 18 16 Rate Blood Pressure 102/49 (mmHg) O2 Sat by Pulse 94 Oximetry Oxygen Devices in Use Now: None Appearance: 82 yo F in nAD, aAOx3 Eyes: No Scleral Icterus, PERRLA Ears/Nose/Mouth/Throat: NL Teeth, Lips, Gums, Mucous Membranes Moist Neck: NL Appearance and Movements; NL JVP, Trachea Midline Respiratory: Symmetrical Chest Expansion and Respiratory Effort, Clear to Auscultation Cardiovascular: NL Sounds; No Murmurs; No JVD, RRR Abdominal: - - distended, tympanic, soft, NT, BS+ Extremities: No Clubbing, Cyanosis, - - +1 pitting pedal edema b/l Skin: No Rash or Ulcers, No Nodules or Sclerosis Neurological: Alert and Oriented x 3, NL Muscle Strength and Tone Result Diagrams: 07/14/18 08:47 07/14/18 08:47 Additional Lab and Data: Laboratory Tests 07/11/18 07/11/18 07/11/18 16:10 16:30 17:29 Glucose 96 Calcium 10.6 H AST 22 ALT 20 Alkaline Phosphatase 114 H B-Natriuretic Peptide 443 H Lipase 28 Ur Specific [place] 1.008 L Ur Leukocyte Esterase 3+ A Urine WBC (Auto) 3+(>20/hpf) A Urine RBC (Auto) Absent Ur Squamous Epith Cells Present A Microbiology and Other Data: Microbiology 07/11/18 16:10 Urine Culture - Final Urine No Growth (<1,000 CFU/mL) Diagnostic Imaging: Chest X-ray; negative Abdo X-ray; ?SBO CT Abdomen/Pelvis: T11 and L1 compression fracture, no obstruction LS Spine- L2 comp frx EKG Data: pending Assess/Plan/Problems-Billing Assessment: 82 year old with apparent new compression fractures at T11 and L1, hypercalcemia , and constipation - Patient Problems (1) BLADIMIR (acute kidney injury) Comment: pt had been on Aldactone, torsemide, Metolazone for leg edema and PAH will hold diuretics , cont to monitor creat (2) Constipation Comment: no obstruction on CT but colonic dilation noted Colonoscopy neg on 07/13/18 will start methylnaltrexone or poss opioid induced constipation (3) Hypercalcemia Comment: ionized calcium okay calcium has normalized (4) Pulmonary hypertension Comment: presumably PAH since she is on sildenafil with some signs of right sided heart failure but will hold off on diuresis at this point given GI issues (5) UTI (urinary tract infection) Comment: recently treated with keflex, urine culture shows no growth (6) Vertebral compression fracture Comment: In presence of hypercalcemia, may have malignant pathological fractures MRI spine negative for spinal cord compression PT avoid narcotics (7) DVT prophylaxis Comment: HSQ Status and Disposition: inpatient
[2018-07-14] MEDS ORDERED: Magnesium CITRATE* 300 ML BTL PO ONE (14:23)
[2018-07-14] MEDS ORDERED: Sodium Phosphate ADULT ENEMA* 118 ml bottle PR PRN (14:24)
[2018-07-14] MEDS ORDERED: Methylnaltrexone 150 MG TAB PO SCH (15:00)
[2018-07-14] MEDS: CMC:Methylnaltrexone SQ (NF) 12 MG/0.6 ML VIAL SUBCUT SCH (16:44)
[2018-07-14] MEDS: Atorvastatin* 10 MG TAB PO SCH (16:44)
[2018-07-14] MEDS ORDERED: Senna TAB PO SCH (21:00)
[2018-07-14] MEDS: Heparin VIAL(*) 5000 UNITS/ML VIAL (FIVE THOUSAND) SUBCUT SCH (21:42)
[2018-07-15] MEDS: Heparin VIAL(*) 5000 UNITS/ML VIAL (FIVE THOUSAND) SUBCUT SCH ×2 (06:13→16:48)
[2018-07-15] MEDS: Pantoprazole TAB * 40 MG TAB PO SCH (07:52)
[2018-07-15] MEDS: Metoprolol Tartrate TAB* 25 MG PO SCH (07:53)
[2018-07-15] MEDS: SILDENAFIL 20 MG PO SCH ×2 (07:55→16:48)
[2018-07-15] MEDS: Polyethylene Glycol 3350* 17 GM PACKET PO SCH (07:56)
[2018-07-15] MEDS: CMC:Methylnaltrexone SQ (NF) 12 MG/0.6 ML VIAL SUBCUT SCH (07:56)
[2018-07-15 08:22] LABS: BUN/Creatinine Ratio 17.7 (8-20); Calcium 10.2 mg/dL (8.6-10.3); EGFR Non-African American 41.3 (>60); Potassium 4.2 mmol/L (3.5-5.0)
[2018-07-15] MEDS ORDERED: Metolazone TAB* 5 MG PO SCH (08:30)
[2018-07-15] MEDS ORDERED: Spironolactone TAB* 25 MG PO SCH (09:00)
[2018-07-15] MEDS ORDERED: Torsemide TAB 10 MG PO SCH (09:00)
[2018-07-15 12:01] VITALS: BP 98/43
--- NOTE | 2018-07-16 03:38 | DS ---
CC: Dr. Lou Frias * DISCHARGE SUMMARY: DATE OF ADMISSION: 07/11/18 DATE OF DISCHARGE: 07/15/18 The patient is being discharged to home. PRIMARY CARE PROVIDER: Dr. Lou Frias. The physician is from [place], [place]. CONDITION AT DISCHARGE: Stable. DISCHARGE DIAGNOSES: 1. Vertebral compression fracture. 2. Constipation. 3. Acute kidney injury. SECONDARY DIAGNOSES: 1. History of pulmonary arterial hypertension. 2. History of diabetes type 2, diet controlled. 3. History of allergic rhinitis. 4. Breast cancer. 5. History of osteoporosis. 6. History of atrial fibrillation. 7. Congestive heart failure. MEDICATIONS AT DISCHARGE: Include: 1. Loratadine 10 mg daily. 2. Metolazone 2.5 mg daily. 3. Metoprolol tartrate 12.5 mg b.i.d. 4. Singulair 10 mg a day. 5. Multivitamins one tablet daily. 6. Omeprazole 40 mg daily. 7. Sildenafil pulmonary 20 mg 3 times a day. 8. Zocor 20 mg daily. 9. Aldactone 50 mg b.i.d. 10. Flexeril 10 mg t.i.d. p.r.n. 11. Simethicone 125 mg q.8 hours p.r.n. gas. CONSULTATIONS DURING THE HOSPITAL STAY: Included Dr. Russo and Dr. Vargas from Gastroenterology. PROCEDURES PERFORMED: Included: On 07/13/[address] Vargas, colonoscopy to the right colon with impression: Anatomically normal colon to the ileocecal valve. Ileus decompressed and positioning treatment with enemas hopefully will help. Ferrous sulfate can be discontinued temporarily as the patient's hemoglobin is 12.1 and MCV of 85. LABORATORY DATA AND STUDIES PERFORMED DURING THE HOSPITAL STAY: Included: On , white cell count was 8.1, hemoglobin of 11.6, hematocrit of 35, and platelets of 318. On 07/15/18, sodium was 132, potassium 4.2, chloride 97, carbon oxide 28, BUN 22, creatinine 1.24. The patient's calcium level was 10.2 on the day of discharge. Microbiology tests showed urine cultures with no growth. CT of the abdomen and pelvis obtained on 07/11/18, impression: "No acute inflammatory process. Moderate T11 compression fracture, is likely acute to subacute. L1 compression fracture, is most likely chronic." Lumbar spine MRI obtained on 07/12/18, impression: "Degenerative disk disease and osteoarthritis. There are subacute compression fractures of T11 and T12 with chronic compression fracture of L1. There is no significant osseous retropulsion. There is a multilevel neural foraminal narrowing as described above. There is mild narrowing of the central canal at L3-L4. Most recent abdominal x-ray obtained on 07/13/18, impression: "Interval decrease in magnitude of colon distention and air-fluid levels. The imaging appearance favors ileus." A portable chest x-ray at admission, "no evidence of acute disease." HOSPITALIZATION COURSE: Maday Madrid is an 82-year-old female with history of recent hospitalization at [facility] for likely right-sided heart failure with pulmonary arterial hypertension diagnosis. She had been home post- hospitalization for a couple of weeks with visiting nurse assistance and she came into the hospital after she noted to have constipation and back pain. She came to the hospital for evaluation and she was noted to have acute to subacute T11 and T12 compression fractures and chronic L1 compression fracture. For that, she was treated with narcotics. She also noted to have ileus, likely related to narcotics. She was placed on mostly of liquid diet throughout the hospital stay and she had loose liquid stools, but no solid matter of the bowel movement. At that point, it was felt that the patient may have ileus or obstruction and Dr. Vargas performed a colonoscopy on 07/13/18, which noted no abnormalities and bowel was decompressed. Post-colonoscopy, the patient has been tolerating regular diet. She still continues to have several loose bowel movements, but no abdominal pain, only distention. She did receive a dose of methylnaltrexone after colonoscopy to reverse possibility of narcotic- related ileus. By the time of discharge, she is tolerating diet fine. She feels that her bowel movements are improving and she wishes to go home. In regards to her compression fractures, she had been ambulatory without any issues. The only problem she has is when she gets up she needs to get up from a recliner since the bed is difficult to use for her. She already has a recliner at home which she had used. She had been having problems with muscle spasm and Flexeril is going to be prescribed at discharge. Ebony-procedure, the patient developed acute kidney injury with creatinine of 1.46 on 07/14/18. Her diuretics were held over the next 24 hours and her creatinine improved. She is going home on the regular dose of her diuretics that she came in with. The patient was noted to have mild hypercalcemia at admission with calcium level of 10.7 and PTH level of 29.5. Ionized calcium never increased and her calcium normalized to 10.2 on the day of discharge. The patient is going to discharged home, recommendations to follow up with [facility] that she already has setup from her prior hospital stay. PHYSICAL EXAM AT THE TIME OF DISCHARGE: Blood pressure of 98/43, heart rate of 77 and regular, respiratory rate 18, oxygen saturation 95% on room air, temperature 98.1. General: The patient is a pleasant 82-year-old female who is not in acute distress. Alert, awake and oriented x3. HEENT: Head is atraumatic and normocephalic. Eyes: Pupils equal and reactive to light and accommodation. Oropharynx clear. Mucosa moist. Neck: Supple. No JVD, no bruit bilaterally. Cardiovascular: Regular rate and rhythm. No murmurs. Respiratory: Clear to auscultation bilaterally. Abdomen: Soft, distended, tympanic to percussion, nontender. Bowel sounds present in all 4 quadrants. Extremities: There is +1 pitting pedal edema bilaterally. Pulses are +2 bilaterally. There is no clubbing or cyanosis. Skin: The patient has small areas of venostasis related likely tiny ulcerations of approximately 0.5 cm in diameter. There are 3 to 4 on each distal leg. Those have not infected, not draining and not deep. Neuro Evaluation: Speech is clear. Cranial nerves II through XII grossly intact. Motor strength is 5/5 bilaterally. Please note that this is a short summary of the patient's hospitalization. Please refer to further medical records for details. TIME SPENT: Approximately forty minutes was spent on the patient's discharge. [id number]/[facility] #: [id number] MTDD
== END 2018-07-15 14:40 | disposition home or self-care (01) | DRG 982 ==
LOC: ED 11:53 → MED 21:59 → ED 23:30 → OBSVTOIN 07-14 07:42
PROVIDERS: ADMIT Internal Medicine; ATTEND Internal Medicine
PROC: 0D9F8ZZ Drainage of Right Large Intestine, Via Natural or Artificial Opening Endoscopic (ICD-10-PCS; principal; 2018-07-13)
DX: M48.54XA Collapsed vertebra, not elsewhere classified, thoracic region, initial encounter for fracture (principal); K56.7 Ileus, unspecified; N17.9 Acute kidney failure, unspecified; N39.0 Urinary tract infection, site not specified; M48.56XD Collapsed vertebra, not elsewhere classified, lumbar region, subsequent encounter for fracture with routine healing; I11.0 Hypertensive heart disease with heart failure; I50.9 Heart failure, unspecified; I27.21 Secondary pulmonary arterial hypertension; I48.91 Unspecified atrial fibrillation; E83.52 Hypercalcemia; E11.9 Type 2 diabetes mellitus without complications; K59.00 Constipation, unspecified; M62.830 Muscle spasm of back; M81.0 Age-related osteoporosis without current pathological fracture; J30.9 Allergic rhinitis, unspecified; Z96.653 Presence of artificial knee joint, bilateral; Z82.5 Family history of asthma and other chronic lower respiratory diseases; Z85.3 Personal history of malignant neoplasm of breast; Z90.12 Acquired absence of left breast and nipple; Z79.899 Other long term (current) drug therapy
CPT/HCPCS: 36415; 71045; 72110; 72148; 74018; 74019; 74176; 80048; 80053; 81003; 81015; 82306; 82330; 83690; 83735; 83880; 83970; 84100; 85025; 85027; 87086; 99156; 99157; 99284; A9270-GY; G0378; G8978-GP-CK; G8979-GP-CH; J0780; J1644; J2250; J2405; J3010